=== PATIENT | male | born 1940 | race African-American/Black ===

== ENCOUNTER 2017-12-09 08:52 | Outpatient (CLI) | payer MEDICARE, SELFPAY ==
[2017-12-09 09:38] LABS: Bilirubin Negative (Negative); Blood Negative (Negative); Clarity Clear; Glucose 100 mg/dL (Negative); Ketones Negative (Negative); Leukocyte Esterase Negative (Negative); Nitrite Negative (Negative); Specific Gravity 1.025 (1.005-1.025); Urobilinogen 0.2 EU/dL (Up TO 0.2)
== END 2017-12-09 09:12 ==
PROVIDERS: PCP Family Medicine; Visit Provider Radiology Radiation Oncology
DX: R30.0 Dysuria (principal); R35.0 Frequency of micturition
CPT/HCPCS: 81003

== ENCOUNTER 2018-02-02 11:59 | Outpatient (CLI) | payer MEDICARE, SELFPAY ==
[2018-02-03 12:06] LABS: PSA, Diagnostic <0.1 ng/ml (0-6.5)
[2018-02-05 04:23] LABS: Testosterone, Total <7.0 ng/dL (240-950)
== END 2018-02-02 12:19 ==
PROVIDERS: PCP Family Medicine; Visit Provider Radiology Radiation Oncology
DX: C61 Malignant neoplasm of prostate (principal)
CPT/HCPCS: 36415; 84403; 84153

== ENCOUNTER 2018-05-06 17:00 | Outpatient (CLI) | payer OTHER, SELFPAY ==
[2018-05-06 17:29] LABS: Abs Immature Grans 0.01 k/cumm (0.0-0.09); Absolute Basophil Count 0.01 k/cumm (0.0-0.2); Absolute Eosinophil Count 0.07 k/cumm (0.0-0.7); Absolute Lymphocyte Count 0.82 k/cumm (1.2-3.4); Absolute Monocyte Count 0.32 k/cumm (0.11-0.7); Absolute Neutrophil Count 1.88 k/cumm (1.2-6.7); Basophils % 0.3; Eosinophils % 2.3; HCT 39.3 % (40.0-50.0); HGB 13.3 g/dL (13.5-17.5); Immature Grans % 0.3; Lymphocytes % 26.4; Mean Corp. HGB Concentration 33.8 g/dL (32.0-36.0); Mean Corpuscular Volume 79.9 fL (80-95); Mean Platelet Volume 10.1 fL (8.0-11.0); Monocytes % 10.3; Neutrophils % 60.4; Platelet Count 255 x1000/uL (130-400); RBC 4.92 m/cumm (4.50-6.00); RBC Distribution Width 13.7 % (11.8-14.1); White Blood Cell Count 3.11 k/cumm (4.4-10.8)
[2018-05-06 17:36] LABS: ALT 40 U/L (12-78); AST 25 U/L (15-37); Albumin 4.1 g/dL (3.4-5.0); Alkaline Phosphatase 90 U/L (46-116); BUN 25 mg/dL (7-18); Bilirubin, Total 0.2 mg/dL (0.2-1.0); CREATININE 1.34 mg/dL (0.70-1.30); Chloride 100 mmol/L (98-107); Estimated GFR 51.69 (mL/min/1.73m2); Glucose 106 mg/dL (70-100); Sodium 138 mmol/L (136-145); Total Protein 8.2 g/dL (6.4-8.2)
[2018-05-06 17:46] LABS: Calcium 9.4 mg/dL (8.5-10.1)
[2018-05-07 09:52] LABS: PSA, Diagnostic <0.1 ng/ml (0-6.5)
[2018-05-09 14:58] LABS: Testosterone, Total <7.0 ng/dL (240-950)
== END 2018-05-06 17:20 ==
PROVIDERS: Nurse Practitioner; PCP Family Medicine; Visit Provider Nurse Practitioner Family
DX: C61 Malignant neoplasm of prostate (principal)
CPT/HCPCS: 36415; 80053; 84403; 84153; 85025

== ENCOUNTER 2018-07-08 13:01 | Outpatient (CLI) | payer OTHER, SELFPAY ==
--- NOTE | 2018-07-08 13:35 | DI.RAD_ITS ---
SYMPTOMS/DIAGNOSIS: PAIN, POPPING WITH TWISTING INJURY 2 WEEKS AGO LEFT KNEE: There is slight narrowing of the medial joint compartment. Minimal periarticular hypertrophic spurring is demonstrated. There is no evidence of a fracture or dislocation. There is no evidence of a joint effusion. SUMMARY: Mild degenerative changes are identified. No fracture or dislocation is seen.
== END 2018-07-08 13:21 ==
PROVIDERS: PCP Family Medicine; Visit Provider Nurse Practitioner Family
DX: M25.562 Pain in left knee (principal); M17.12 Unilateral primary osteoarthritis, left knee
CPT/HCPCS: 73564

== ENCOUNTER 2018-07-28 14:43 | Outpatient (CLI) | payer OTHER, SELFPAY ==
[2018-07-28 15:41] LABS: Absolute Basophil Count 0.01 k/cumm (0.0-0.2); Absolute Eosinophil Count 0.17 k/cumm (0.0-0.7); Absolute Lymphocyte Count 0.78 k/cumm (1.2-3.4); Absolute Monocyte Count 0.36 k/cumm (0.11-0.7); Absolute Neutrophil Count 2.19 k/cumm (1.2-6.7); Basophils % 0.3; Eosinophils % 4.8; HCT 38.2 % (40.0-50.0); HGB 12.4 g/dL (13.5-17.5); Lymphocytes % 22.2; Mean Corp. HGB Concentration 32.5 g/dL (32.0-36.0); Mean Corpuscular Hemoglobin 26.3 pg (27.0-33.0); Mean Corpuscular Volume 80.9 fL (80-95); Mean Platelet Volume 10.2 fL (8.0-11.0); Monocytes % 10.3; Neutrophils % 62.4; Platelet Count 242 x1000/uL (130-400); RBC 4.72 m/cumm (4.50-6.00); RBC Distribution Width 13.7 % (11.8-14.1); White Blood Cell Count 3.51 k/cumm (4.4-10.8)
[2018-07-28 16:09] LABS: ALT 47 U/L (12-78); AST 27 U/L (15-37); Albumin 4.1 g/dL (3.4-5.0); Alkaline Phosphatase 90 U/L (46-116); Anion Gap 8.4 mmol/L (3-11); BUN 24 mg/dL (7-18); Bilirubin, Total 0.2 mg/dL (0.2-1.0); CO2 28.6 mmol/L (21.0-32.0); CREATININE 1.42 mg/dL (0.70-1.30); Calcium 9.2 mg/dL (8.5-10.1); Chloride 102 mmol/L (98-107); Estimated GFR 48.34 (mL/min/1.73m2); Glucose 101 mg/dL (70-100); Potassium 3.8 mmol/L (3.5-5.1); Sodium 139 mmol/L (136-145); Total Protein 7.4 g/dL (6.4-8.2)
[2018-07-29 10:12] LABS: PSA, Diagnostic <0.1 ng/ml (0-6.5)
[2018-07-31 04:38] LABS: Testosterone, Total <7.0 ng/dL (240-950)
== END 2018-07-28 15:03 ==
PROVIDERS: PCP Family Medicine; Visit Provider Nurse Practitioner
DX: C61 Malignant neoplasm of prostate (principal)
CPT/HCPCS: 36415; 80053; 84403; 84153; 85025

== ENCOUNTER 2018-08-09 06:59 | Day surgery (SDC) | payer OTHER, SELFPAY ==
--- NOTE | 2018-08-09 07:34 | W.PM.DSUDISC ---
Discharge Plan Disposition Patient Disposition: HOME Condition: Good Discharge Details Reason For Visit: SEBACEOUS CYST Attending Provider: Raman Bell Primary Care Provider: Amanda Wilkins V Home Meds and New Rx's Prescriptions: No Action aspirin 81 MG tablet,delayed release (DR/EC) 81 mg PO .3 TIMES A WEEK Qty: 1 RF: 0 chlorthalidone 50 MG tablet 25 mg PO DAILY RF: 0 sulfamethoxazole-trimethoprim [Bactrim DS] 1 EACH tablet 1 ea PO DAILY RF: 0 losartan 100 mg Tablet 50 mg PO DAILY RF: 0 finasteride 5 mg Tablet 5 mg PO DAILY RF: 0 Discharge Instructions Additional Instructions: see sheet Activity:: Activity as Tolerated Remove Dressings/Wound Care:: 24 hours Shower/Bathe:: 24 hours
[2018-08-09 07:36] VITALS: BP 149/76; PULSE 68; RESP 16; TEMP 36.2; O2SAT 98
[2018-08-09] MEDS: Lactated Ringers 1,000 ML 80 ML IV (08:02)
--- NOTE | 2018-08-09 08:48 | SOFT_PTH ---
PATIENT: Karel Armstrong LOC: [facility] U#:[id number] AGE/SX: 78/M ROOM: RE08/09/[address]: Raman Bell DO : 1940 BED: DIS: 08/09/2018 SPEC #: [id number] RECD: 08/09/18 12:37 STATUS: DI REIsa #: [id number] NELSON: 08/09/18 08:[address]: Raman Bell DEPT: Surgical Specimen RECD BY: Tiesha Adams ENTERED: 08/09/18 12:38 SP TYPE: SOFT OTHR DR: Amanda Wilkins V Tissues: 1 - SOFT TISSUE-CYST(NOT LIPOMA) Procedures: GROSS AND MICRO LEVEL 4 Comments: [id number]
[2018-08-09 09:57] VITALS: BP 138/78; PULSE 59; RESP 18; TEMP 36.5; O2SAT 99
--- NOTE | 2018-08-09 14:53 | ROE_ITS ---
DATE OF PROCEDURE: August 09, 2018 PREOPERATIVE DIAGNOSIS: Right chin mass. POSTOPERATIVE DIAGNOSIS: Right chin mass; suspicious of vascular-type mass measuring 1.5 cm; skin in cision measuring 2.2 cm; intermediate closure. PROCEDURE: Excision of right chin mass with intermediate skin closure 2.2 cm; primary lesion measuri ng 1.5 cm SURGEON: Raman Bell D.O. ANESTHESIA: MAC sedation and 18 cc's of 1% lidocaine with 1:100,000 epinephrine. COMPLICATIONS: None. CONDITION: The patient tolerated the procedure well. ESTIMATED BLOOD LOSS: 1 cc INDICATIONS FOR PROCEDURE: This is a pleasant 78-year-old male that presents with a history of enlar ging right chin mass. The decision was made forth to proceed with surgery. Risks and complications were discussed in detail. Consent was placed in the Chart. PROCEDURE: The patient was brought back to the operative suite in stable condition, placed supine on the operating table and given IV sedation, localized and prepped and draped in a sterile fashion. T arnold-out was taken to confirm proper patient and procedure. A linear-type incision parallel to the mandible was made in the right submental/chin area overlying t he deep soft tissue mass. Dissection over this with sharp approach was performed. This appeared to be a vascular-type subcutaneous mass; this was dissected and the base was cauterized with bipolar cau ramesh. There was scant blood loss of 1 cc. The total skin incision was 2.2 cm. Primary mass was 1.5 cm. Intermediate closure was performed with #4-0 Monocryl, followed by #4-0 Nylon. The patient brittany erated the procedure well. Bactroban and a Band-Aid were placed. He will follow-up as an outpatient .
== END 2018-08-09 10:14 | disposition home or self-care (01) ==
PROVIDERS: PCP Family Medicine; Visit Provider Otolaryngology Otolaryngology/Facial Plastic Surgery
PROC: 0HB1XZZ Excision of Face Skin, External Approach (ICD-10-PCS; CPT 11443; principal; 2018-08-09 08:15)
DX: D18.01 Hemangioma of skin and subcutaneous tissue (principal)
CPT/HCPCS: 11443; 12051; 88305

== ENCOUNTER 2018-08-18 10:36 | Outpatient (CLI) | payer OTHER, SELFPAY ==
[2018-08-18 15:05] LABS: Abs Immature Grans 0.01 k/cumm (0.0-0.09); Absolute Basophil Count 0.01 k/cumm (0.0-0.2); Absolute Eosinophil Count 0.06 k/cumm (0.0-0.7); Absolute Lymphocyte Count 0.85 k/cumm (1.2-3.4); Absolute Monocyte Count 0.37 k/cumm (0.11-0.7); Absolute Neutrophil Count 2.51 k/cumm (1.2-6.7); Basophils % 0.3; Eosinophils % 1.6; HCT 37.1 % (40.0-50.0); HGB 12.4 g/dL (13.5-17.5); Immature Grans % 0.3; Lymphocytes % 22.3; Mean Corp. HGB Concentration 33.4 g/dL (32.0-36.0); Mean Corpuscular Hemoglobin 26.7 pg (27.0-33.0); Mean Platelet Volume 10.1 fL (8.0-11.0); Monocytes % 9.7; Neutrophils % 65.8; Platelet Count 245 x1000/uL (130-400); RBC 4.64 m/cumm (4.50-6.00); RBC Distribution Width 13.4 % (11.8-14.1); White Blood Cell Count 3.81 k/cumm (4.4-10.8)
[2018-08-18 16:04] LABS: Iron 53 ug/dL (50-175)
[2018-08-18 16:39] LABS: Ferritin 141 ng/mL (8-388); Folate 13.3 ng/mL (8.6-20.0); Vitamin B12 265 pg/mL (193-986)
== END 2018-08-18 10:56 ==
PROVIDERS: PCP Family Medicine; Visit Provider Family Medicine
DX: D64.9 Anemia, unspecified (principal)
CPT/HCPCS: 36415; 82607; 82728; 82746; 83540; 85025

== ENCOUNTER 2018-11-22 14:50 | Outpatient (CLI) | payer OTHER, SELFPAY ==
[2018-11-22 15:21] LABS: Abs Immature Grans 0.01 k/cumm (0.0-0.09); Absolute Basophil Count 0.01 k/cumm (0.0-0.2); Absolute Eosinophil Count 0.07 k/cumm (0.0-0.7); Absolute Lymphocyte Count 0.75 k/cumm (1.2-3.4); Absolute Monocyte Count 0.38 k/cumm (0.11-0.7); Absolute Neutrophil Count 2.31 k/cumm (1.2-6.7); Basophils % 0.3; HGB 12.2 g/dL (13.5-17.5); Immature Grans % 0.3; Lymphocytes % 21.2; Mean Corpuscular Hemoglobin 26.2 pg (27.0-33.0); Mean Corpuscular Volume 79.6 fL (80-95); Mean Platelet Volume 10.7 fL (8.0-11.0); Monocytes % 10.8; Neutrophils % 65.4; Platelet Count 257 x1000/uL (130-400); RBC 4.65 m/cumm (4.50-6.00); RBC Distribution Width 14.3 % (11.8-14.1); White Blood Cell Count 3.53 k/cumm (4.4-10.8)
[2018-11-22 16:16] LABS: ALT 39 U/L (12-78); AST 20 U/L (15-37); Albumin 3.9 g/dL (3.4-5.0); Alkaline Phosphatase 100 U/L (46-116); Anion Gap 9.2 mmol/L (3-11); BUN 20 mg/dL (7-18); Bilirubin, Total 0.2 mg/dL (0.2-1.0); CO2 28.8 mmol/L (21.0-32.0); CREATININE 1.22 mg/dL (0.70-1.30); Calcium 9.2 mg/dL (8.5-10.1); Chloride 103 mmol/L (98-107); Glucose 111 mg/dL (70-100); Sodium 141 mmol/L (136-145); Total Protein 7.3 g/dL (6.4-8.2)
[2018-11-23 09:50] LABS: PSA, Diagnostic <0.1 ng/ml (0-6.5)
[2018-11-26 09:47] LABS: Testosterone, Total <7.0 ng/dL (240-950)
== END 2018-11-22 15:10 ==
PROVIDERS: PCP Family Medicine; Visit Provider Radiology Radiation Oncology
DX: C61 Malignant neoplasm of prostate (principal)
CPT/HCPCS: 36415; 80053; 84403; 84153; 85025

== ENCOUNTER 2019-08-08 03:25 | Outpatient (CLI) | payer OTHER, SELFPAY ==
[2019-08-08 12:54] LABS: Abs Immature Grans 0.02 k/cumm (0.0-0.09); Absolute Basophil Count 0.01 k/cumm (0.0-0.2); Absolute Eosinophil Count 0.08 k/cumm (0.0-0.7); Absolute Lymphocyte Count 0.92 k/cumm (1.2-3.4); Absolute Monocyte Count 0.33 k/cumm (0.11-0.7); Absolute Neutrophil Count 3.04 k/cumm (1.2-6.7); Basophils % 0.2; Eosinophils % 1.8; HCT 38.9 % (40.0-50.0); HGB 13.1 g/dL (13.5-17.5); Immature Grans % 0.5 %; Lymphocytes % 20.9; Mean Corp. HGB Concentration 33.7 g/dL (32.0-36.0); Mean Corpuscular Hemoglobin 26.5 pg (27.0-33.0); Mean Corpuscular Volume 78.6 fL (80-95); Mean Platelet Volume 10.5 fL (8.0-11.0); Monocytes % 7.5; Neutrophils % 69.1; Platelet Count 250 x1000/uL (130-400); RBC 4.95 m/cumm (4.50-6.00); RBC Distribution Width 14.2 % (11.8-14.1)
[2019-08-08 13:31] LABS: ALT 49 U/L (16-63); AST 28 U/L (15-37); Albumin 4.1 g/dL (3.4-5.0); Alkaline Phosphatase 111 U/L (46-116); Anion Gap 8.3 mmol/L (3-11); BUN 21 mg/dL (7-18); Bilirubin, Total 0.3 mg/dL (0.2-1.0); CO2 30.7 mmol/L (21.0-32.0); CREATININE 1.26 mg/dL (0.70-1.30); Calcium 9.9 mg/dL (8.5-10.1); Chloride 101 mmol/L (98-107); Estimated GFR 55.35 (mL/min/1.73m2); Glucose 120 mg/dL (74-106); Potassium 3.8 mmol/L (3.5-5.1); Sodium 140 mmol/L (136-145); Total Protein 7.7 g/dL (6.4-8.2)
[2019-08-09 11:09] LABS: PSA, Diagnostic <0.1 ng/mL (0.0-6.5)
[2019-08-10 17:27] LABS: Testosterone, Total 11 ng/dL (240-950)
== END 2019-08-08 03:45 ==
PROVIDERS: PCP Family Medicine; Visit Provider Internal Medicine Hematology & Oncology
DX: C61 Malignant neoplasm of prostate (principal)
CPT/HCPCS: 36415; 80053; 84403; 84153; 85025

== ENCOUNTER 2019-10-04 02:44 | Outpatient (CLI) | payer OTHER, SELFPAY ==
[2019-10-05 08:52] LABS: PSA, Diagnostic <0.1 ng/mL (0.0-6.5)
== END 2019-10-04 03:04 ==
PROVIDERS: PCP Family Medicine; Visit Provider Urology
DX: C61 Malignant neoplasm of prostate (principal)
CPT/HCPCS: 36415; 84153

== ENCOUNTER 2019-12-26 01:39 | Outpatient (CLI) | payer OTHER, SELFPAY ==
[2019-12-28 10:41] LABS: PSA, Ultrasensitive <0.01 ng/mL (<= 6.5)
[2019-12-29 13:40] LABS: Testosterone, Total 19 ng/dL (240-950)
== END 2019-12-26 01:59 ==
PROVIDERS: Urology; PCP Family Medicine
DX: C61 Malignant neoplasm of prostate (principal)
CPT/HCPCS: 36415; 84153; 84403

== ENCOUNTER 2020-02-14 02:15 | Outpatient (CLI) | payer OTHER, SELFPAY ==
[2020-02-15 16:06] LABS: PSA, Ultrasensitive <0.01 ng/mL (<= 6.5)
[2020-02-17 13:03] LABS: Testosterone, Total 26 ng/dL (240-950)
== END 2020-02-14 02:35 ==
PROVIDERS: PCP Family Medicine; Visit Provider Nurse Practitioner Family
DX: C61 Malignant neoplasm of prostate (principal)
CPT/HCPCS: 36415; 84153; 84403

== ENCOUNTER 2020-08-07 14:07 | Outpatient (REF) | payer OTHER, SELFPAY ==
[2020-08-07 16:18] LABS: HCT 38.7 % (40.0-50.0); HGB 12.9 g/dL (13.5-17.5); MCH 26.2 pg (27.0-33.0); MCHC 33.3 % (32.0-36.0); MCV 78.5 fL (80-95); MPV 11.5 fL (8.0-11.0); Platelet Count 258 10^3/uL (130-400); RBC 4.93 10^6/uL (4.36-5.78); RDW 13.4 % (11.8-14.1); RDW-SD 38.4 fL; WBC 4.05 10^3/uL (4.4-10.8)
[2020-08-07 16:40] LABS: ALT 40 U/L (16-63); AST 21 U/L (15-37); Albumin 4.1 g/dL (3.4-5.0); Alkaline Phosphatase 96 U/L (46-116); Anion Gap 11.5 mmol/L (3-11); BUN 24 mg/dL (7-18); Bilirubin, Total 0.3 mg/dL (0.2-1.0); CO2 27.5 mmol/L (21.0-32.0); CREATININE 1.1 mg/dL (0.70-1.30); Calcium 9.6 mg/dL (8.5-10.1); Chloride 102 mmol/L (98-107); Glucose 137 mg/dL (74-106); Sodium 141 mmol/L (136-145); Total Protein 7.6 g/dL (6.4-8.2)
[2020-08-07 16:58] LABS: Hemoglobin A1C 7.2 % (<5.7)
[2020-08-07 21:56] LABS: PSA, Diagnostic <0.1 ng/mL (0.0-6.5)
== END 2020-08-07 14:08 | disposition home or self-care (01) ==
LOC: NCHCN 14:07
PROVIDERS: PCP Family Medicine; Visit Provider Family Medicine
DX: I10 Essential (primary) hypertension (principal); D64.9 Anemia, unspecified; I35.8 Other nonrheumatic aortic valve disorders; E11.9 Type 2 diabetes mellitus without complications; C61 Malignant neoplasm of prostate
CPT/HCPCS: 80053; 84402; 84403; 85027; 83036; 84153

== ENCOUNTER 2020-08-20 14:48 | Outpatient (REF) | payer OTHER, SELFPAY ==
[2020-08-20 15:54] LABS: Bacteria Negative HPF (Negative); C & S Indicated? No; Casts Negative LPF (Negative); Crystals Negative HPF (Negative); Epithelial Cells Few HPF (Negative); Mucus Negative (Negative); WBC 0-2 HPF (0-5)
== END 2020-08-20 14:49 | disposition home or self-care (01) ==
LOC: NCHCN 14:48
PROVIDERS: PCP Family Medicine; Visit Provider Nurse Practitioner Family
DX: R31.9 Hematuria, unspecified (principal)
CPT/HCPCS: 81015

== ENCOUNTER 2020-08-24 01:57 | Outpatient (CLI) | payer OTHER, SELFPAY ==
[2020-08-25 13:20] LABS: PSA, Ultrasensitive <0.01 ng/mL (<= 6.5)
[2020-08-29 11:46] LABS: Testosterone, Total 22 ng/dL (240-950)
== END 2020-08-24 01:58 | disposition home or self-care (01) ==
LOC: LBO 01:57
PROVIDERS: PCP Family Medicine; Visit Provider Nurse Practitioner Family
DX: C61 Malignant neoplasm of prostate (principal)
CPT/HCPCS: 36415; 84153; 84403

== ENCOUNTER 2020-08-31 03:34 | Outpatient (CLI) | payer OTHER, SELFPAY ==
--- NOTE | 2020-08-31 09:26 | DI.US_ITS ---
APPROVED REPORT EXAM: Comprehensive 2D, Doppler, and color-flow Echocardiogram Patient Location: Out-Patient Bulk Station Agent: Kathy Mendieta RDCS (AE) Indications: Aortic valve sclerosis Other Information Study Quality: Adequate Conclusion Left Ventricle : The left ventricle is normal size. The left ventricular systolic function is normal. The left ventricular ejection fraction is within the normal range. There is normal left ventricular wall thickness. There is normal LV segmental wall motion. The left ventricular diastolic function is normal. LVEF is 55%. Right Ventricle : The right ventricle is normal size. The right ventricular systolic function is norm al. The RVSP is 26.2 mmHg. Atria : The left atrium size is normal. The right atrium size is normal. Aortic Valve : Aortic valve is calcified. Aortic valve is probably trileaflet. Mild aortic regurgitat ion. No hemodynamically significant valvular aortic stenosis. Great Vessels : The aortic root is normal in size. The ascending aorta is mildly dilated. Aortic arch is normal in caliber. IVC is normal in size and collapses >50% with inspiration. Wall motion Left Ventricle The left ventricle is normal size. The left ventricular systolic function is normal. The left ventric ular ejection fraction is within the normal range. There is normal left ventricular wall thickness. T here is normal LV segmental wall motion. The left ventricular diastolic function is normal. There is no ventricular septal defect visualized. LVEF is 55%. Right Ventricle The right ventricle is normal size. The right ventricular systolic function is normal. The RVSP is 26 .2 mmHg. Atria The left atrium size is normal. The right atrium size is normal. The interatrial septum is intact wit h no evidence for an atrial septal defect. Aortic Valve Aortic valve is calcified. Aortic valve is probably trileaflet. No hemodynamically significant valvul ar aortic stenosis. Mild aortic regurgitation. Mitral Valve Mild mitral annular calcification. No evidence of mitral valve stenosis. Trace mitral regurgitation. Tricuspid Valve The tricuspid valve is normal in structure. There is no tricuspid valve stenosis. Trace tricuspid reg urgitation. Pulmonic Valve The pulmonary valve is normal in structure. There is no pulmonic valvular stenosis. Trace pulmonic re gurgitation. Great Vessels The aortic root is normal in size. The ascending aorta is mildly dilated. Aortic arch is normal in ca liber. IVC is normal in size and collapses >50% with inspiration. Pericardium There is no pericardial effusion. 2D Dimensions IVSD d PLAX 0.84 cm M: 0.6-1.2 LV Vol A2C d MOD 136.2 mL LVPW d PLAX 0.85 cm M: 0.6 - 1.2 LV Vol A4C d MOD 107.2 mL LVID d PLAX 4.52 cm M: 4.2 - 5.8 LA vol/ BSA A2C s A-L 25.8 mL/m2 LVDs 3.10 cm M: 2.5 - 4.0 LA vol/ BSA A4C s A-L 15.4 mL/m2 Ao Root d 3.49 cm M: 3.1 - 3.7 LA Vol/ BSA Biplane s A-L 21.2 mL/m2 RA Area A4C 14.39 cm2 LA Area A4C s MOD 12.39 cm2 RA Vol/ BSA A4C s A-L 18.3 mL/m2 LA Area A2C s MOD 17.04 cm2 Ao Asc Diam d 3.64 cm M: 2.6 - 3.4 LV EF A4C MOD 55.2 % LV EF Teichholz 58.4 % LV EF A2C MOD 55.5 % LVEF (Izquierdo's) 52.33 % M: 52 - 72 LV EF Biplane MOD 52.3 % LV Volume 91.98 mL M: 62 - 150 SV 63.69 mL LV Volume Index 47.16 mL/m2 M: 34 - 74 SV Index 32.59 mL/m2 LV Vol Biplane MOD 121.7 mL FS 30.70 % M-Mode TAPSE 2.67 cm (M/F) >1.7 LV Diastology MV E' medial 0.080 (>0.07 m/s) E/A Ratio 0.6 LV E/e MED 5.85 (<14) MV E Vmax 0.47 (0.4-1.3 m/s) MV E' lateral 0.076 (>0.1 m/s) MV A Vmax 0.80 (0.4-1.3 m/s) LV E/e LAT 6.15 (<14) MV E/A Ratio 0.57 MV E/E' medial 5.85 MV E/E' lateral 6.15 Aortic Valve LVOT Area 3.16 cm2 AoV Area Vmax 1.37 cm2 LVOT Vmax 0.91 m/s AoV Area/ BSA (Vmax) 0.70 cm2/m2 LVOT Mean Quinten. 0.61 m/s [place] Mean Quinten. 1.29 cm2 LVOT Peak Grad 3.3 mmHg [place] Mean Quinten. Index 0.66 cm2/m2 LVOT Mean Grad 1.7 mmHg AR DT 1720 msec LVOT VTI 0.206 m AR PHT 499 msec LVOT Diam s 2.00 cm AoV Vmax 2.09 m/s Velocity Ratio 0.43 AoV Mean Quinten. 1.50 m/s AoV Peak Grad 17.5 mmHg LVOT SV 64.99 mL AoV Mean Grad 9.9 mmHg AoV VTI 0.420 m AoV Area VTI 1.55 cm2 AoV Area/ BSA (VTI) 0.79 cm/m2 Mitral Valve MV DT 354 (160-240 msec) MV PHT 103 msec MV Area PHT 2.14 cm2 MV VTI 0.218 m MV VTI Annulus 0.234 m MV Area VTI 3.23 (4.0-6.0 cm2) Pulmonary Valve PV Vmax 1.09 (0.5-1.5 m/s) RVOT Peak Gr. 1.45 mmHg PV Peak Grad 4.8 mmHg RVOT Mean Gr. 0.65 mmHg PV Mean Grad 2.3 mmHg RVOT VTI 0.130 m PV VTI 0.216 m RVOT Vmax 0.60 m/s Tricuspid Valve TR Peak Grad 23.1 mmHg TR Vmax 2.41 m/s RA Pressure 3.00 mmHg RVSP (TR) 26.2 mmHg
== END 2020-08-31 03:54 ==
PROVIDERS: PCP Family Medicine; Visit Provider Family Medicine
DX: I35.8 Other nonrheumatic aortic valve disorders (principal); I35.1 Nonrheumatic aortic (valve) insufficiency; I77.810 Thoracic aortic ectasia
CPT/HCPCS: 93306

== ENCOUNTER 2021-02-21 16:40 | Outpatient (REF) | payer OTHER, SELFPAY ==
[2021-02-21 16:59] LABS: ESR 26 mm/hr (0-20)
[2021-02-21 17:37] LABS: ALT 40 U/L (16-63); AST 22 U/L (15-37); Alkaline Phosphatase 85 U/L (46-116); Anion Gap 8.8 mmol/L (3-11); BUN 25 mg/dL (7-18); Bilirubin, Total 0.2 mg/dL (0.2-1.0); CO2 29.2 mmol/L (21.0-32.0); CREATININE 1.1 mg/dL (0.70-1.30); Calcium 9.2 mg/dL (8.5-10.1); Chloride 103 mmol/L (98-107); Ferritin 218 ng/mL (26-388); Glucose 132 mg/dL (74-106); Potassium 4.1 mmol/L (3.5-5.1); Sodium 141 mmol/L (136-145); TSH (W/Ref FT4) 1.37 uIU/mL (0.36-3.74); Total Protein 7.4 g/dL (6.4-8.2); Vitamin B12 1141 pg/mL (193-986)
[2021-02-21 18:05] LABS: C-Reactive Protein 0.26 mg/dL (0.0-0.3)
[2021-02-21 18:41] LABS: HCT 39.2 % (40.0-50.0); HGB 12.8 g/dL (13.5-17.5); MCH 26.1 pg (27.0-33.0); MCHC 32.7 % (32.0-36.0); MCV 79.8 fL (80-95); MPV 11.5 fL (8.0-11.0); Platelet Count 242 10^3/uL (130-400); RBC 4.91 10^6/uL (4.36-5.78); RDW 13.8 % (11.8-14.1); RDW-SD 39.8 fL
[2021-02-21 22:31] LABS: PSA, Diagnostic <0.1 ng/mL (0.0-6.5)
== END 2021-02-21 16:41 | disposition home or self-care (01) ==
LOC: NCHCN 16:40
PROVIDERS: PCP Family Medicine; Visit Provider Family Medicine
DX: C61 Malignant neoplasm of prostate (principal); I10 Essential (primary) hypertension; E11.9 Type 2 diabetes mellitus without complications; D64.9 Anemia, unspecified; Z00.00 Encounter for general adult medical examination without abnormal findings
CPT/HCPCS: 80053; 85027; 85652; 82607; 82728; 84153; 84443; 86140

== ENCOUNTER 2021-02-22 03:37 | Outpatient (CLI) | payer OTHER, SELFPAY ==
[2021-02-25 14:39] LABS: Testosterone, Total 11 ng/dL (240-950)
[2021-02-25 15:31] LABS: PSA, Ultrasensitive <0.01 ng/mL (<= 6.5)
== END 2021-02-22 03:38 | disposition home or self-care (01) ==
PROVIDERS: PCP Family Medicine; Visit Provider Nurse Practitioner
DX: C61 Malignant neoplasm of prostate (principal)
CPT/HCPCS: 36415; 84153; 84403

== ENCOUNTER 2021-03-12 12:46 | Outpatient (CLI) | payer MEDICARE, SELFPAY ==
[2021-03-13 10:19] LABS: PSA, Diagnostic <0.1 ng/mL (0.0-6.5)
== END 2021-03-12 12:47 | disposition home or self-care (01) ==
PROVIDERS: PCP Family Medicine; Visit Provider Urology
DX: C61 Malignant neoplasm of prostate (principal)
CPT/HCPCS: 36415; 84153

== ENCOUNTER 2021-04-10 18:55 | Outpatient (CLI) | payer MEDICARE, SELFPAY ==
--- NOTE | 2021-04-10 | DI.RAD_ITS ---
Exam(s) XR FINGER RT INDEX EXAM: XR FINGER RT INDEX CLINICAL HISTORY: RT FINGER PAIN M79.644, FALL 2 DAYS AGO, JAMMED FINGER, ? FX, TENDER TECHNIQUE: COMPARISON: No exams were available for comparison FINDINGS: Three views were obtained. There is no evidence of acute fracture or dislocation. IMPRESSION: RADIATION DOSE DELIVERED: Total DLP
== END 2021-04-10 19:15 ==
PROVIDERS: PCP Family Medicine; Visit Provider Physician Assistant Medical
DX: M79.644 Pain in right finger(s) (principal); Z91.81 History of falling
CPT/HCPCS: 73140

== ENCOUNTER 2021-07-12 14:14 | Outpatient (REF) | payer MEDICARE, SELFPAY ==
[2021-07-12 14:27] LABS: HCT 37.3 % (40.0-50.0); MCH 26.1 pg (27.0-33.0); MCHC 32.2 % (32.0-36.0); MCV 81.3 fL (80-95); MPV 11.3 fL (8.0-11.0); Platelet Count 206 10^3/uL (130-400); RBC 4.59 10^6/uL (4.36-5.78); RDW 13.7 % (11.8-14.1); RDW-SD 40.4 fL; WBC 3.44 10^3/uL (4.4-10.8)
[2021-07-12 14:41] LABS: Calculated LDL 109 mg/dL (<100); Cholesterol 171 mg/dL (<200); HDL Cholesterol 41 mg/dL (40-60); Triglyceride 109 mg/dL (<150)
== END 2021-07-12 14:15 | disposition home or self-care (01) ==
LOC: NCHCN 14:14
PROVIDERS: PCP Family Medicine; Visit Provider Family Medicine
DX: E11.9 Type 2 diabetes mellitus without complications (principal); D64.9 Anemia, unspecified
CPT/HCPCS: 80061; 85027

== ENCOUNTER → 2021-07-25 14:44 | Outpatient (BNVA) | payer MEDICARE, SELFPAY | PROVIDERS: PCP Family Medicine; Referring Provider Family Medicine; Visit Provider Physical Therapy Assistant | DX: K62.5 Hemorrhage of anus and rectum (principal); D64.9 Anemia, unspecified; Z80.0 Family history of malignant neoplasm of digestive organs | CPT/HCPCS: 99214 ==

== ENCOUNTER 2021-07-31 05:15 | Outpatient (CLI) | payer MEDICARE, SELFPAY ==
--- NOTE | 2021-07-31 14:45 | RT.EKG_ITS ---
APPROVED REPORT Exam: Resting ECG Reason for Exam: Pre op testing, Prior to Colonoscopy Patient Location: O HR:63 bpm ECG Measurements Heart Rate 63 AXIS IL 379 P 0 QRSd 95 QRS -35 QT 409 T 52 QTc 419 Conclusion Gender not entered, assumed to be male for purpose of ECG interpretation Sinus rhythm...normal P axis, V-rate 60- 99 Prolonged IL interval...IL >220, V-rate 50- 90 Inferior infarct, old...Q >35mS, II III aVF
== END 2021-07-31 05:16 | disposition home or self-care (01) ==
PROVIDERS: PCP Family Medicine; Visit Provider Physical Therapy Assistant
DX: Z01.818 Encounter for other preprocedural examination (principal); I25.2 Old myocardial infarction
CPT/HCPCS: 93005; 93010

== ENCOUNTER 2021-08-02 01:28 | Outpatient (CLI) | payer MEDICARE, SELFPAY ==
[2021-08-02 09:14] LABS: Source Nasal/Nares
[2021-08-02 15:24] LABS: COVID-19 PCR Negative (Negative)
== END 2021-08-02 01:29 | disposition home or self-care (01) ==
LOC: LBO 01:28
PROVIDERS: PCP Family Medicine; Visit Provider Surgery
DX: Z20.822 Contact with and (suspected) exposure to COVID-19 (principal); Z01.818 Encounter for other preprocedural examination
CPT/HCPCS: 87635; U0005

== ENCOUNTER 2021-08-05 08:59 | Day surgery (SDC) | payer MEDICARE, SELFPAY ==
--- NOTE | 2021-08-05 06:11 | W.ANESPRE ---
General Info Date of Service Date Performed: 08/05/21 Height: 5 ft 5 in Weight: 98.656 kg Body Mass Index (BMI): 36.1 Surgical Procedure: Operation Date: 08/05/21 10:35 Proposed Procedure Side Surgeon p Colonoscopy/Gastroscopy Tsering Topete MD Meds Allergies and Home Medications Allergies Allergy/AdvReac Type Severity Reaction Status Date / Time ciprofloxacin [From Cipro] Allergy Verified 08/05/21 08:39 ciprofloxacin HCl Allergy Verified 08/05/21 08:39 [From Cipro] lisinopril AdvReac Mild Verified 08/05/21 08:39 aspirin AdvReac ??? Verified 08/05/21 08:39 IRREGULAR HEART RHYTHM atenolol AdvReac FATIGUE/HAs Verified 08/05/21 08:39 nitrofurantoin AdvReac STOMACH Verified 08/05/21 08:39 UPSET Sulfa (Sulfonamide AdvReac HAs, Verified 08/05/21 08:39 Antibiotics) BLURRY VISION Home Medication Medication Instructions Recorded chlorthalidone 50 mg tablet 25 mg PO DAILY 10/03/15 finasteride 5 mg tablet 5 mg PO DAILY 08/05/18 cyanocobalamin (vitamin B-12) 1,000 mcg PO DAILY 04/29/21 1,000 mcg capsule ferrous gluconate 324 mg (37.5 mg 324 mg PO DAILY 04/29/21 iron) tablet tamsulosin 0.4 mg capsule 0.8 mg PO QHS cap 04/29/21 losartan 25 mg tablet 25 mg PO DAILY 07/18/21 simvastatin 10 mg tablet 10 mg PO DAILY 07/18/21 bisacodyl 5 mg tablet,delayed 5 mg PO ONCE #4 tab 07/25/21 release (Dulcolax (bisacodyl)) polyethylene glycol 3350 17 17 g PO ONCE #238 g 07/25/21 gram/dose oral powder Current Visit Medications: Current Medications Generic Name Dose Route Start Last Admin Trade Name Freq PRN Reason Stop Dose Admin Ringer's Solution 1,000 mls @ 80 mls/hr 08/05/21 06:00 IV 09/01/21 23:59 INFUSION HECTOR IV Miscellaneous Supplies 1 each 08/05/21 06:00 Iv Access IV 09/01/21 23:59 DIRECTED HECTOR Sodium Chloride 0 ml 08/05/21 06:00 Normal Saline Flush 10 Ml Syr IV 09/01/21 23:59 PRN PRN Sodium Chloride 0 ml 08/05/21 06:00 Normal Saline 10 Ml Vial IJ 09/01/21 23:59 DIRECTED PRN Sterile Water 0 ml 08/05/21 06:00 Water,Injection,Sterile 10 Ml Vial IJ 09/01/21 23:59 DIRECTED PRN PFSH Active Problems Active Problems: Problem Status Onset Code Fatigue R53.83 Blood in stool K92.1 Medical History Medical History Anemia Aortic valve sclerosis Bitten or stung by nonvenomous insect and other nonvenomous arthropods, initial encounter Chronic kidney disease Constipation Diabetes mellitus, type II Diastasis recti Diverticulosis Elbow pain, left Epididymal cyst GERD (gastroesophageal reflux disease) Heart murmur Pt. states he has had this murmur for 2-3 years Hematuria Hx of laceration of skin Hypertension Lower urinary tract symptoms Night sweats Pedal edema Prostate cancer Raynaud's phenomenon Scrotal mass Situational disturbance Tear of lateral meniscus of right knee 2014 Surgical History Surgical History History of prostate surgery prostate median lobe resection/vaporization + TRUS biopsy 12/03/01 - Dr. Cardona Prostate photoselective vaporization + biopsy 04/07/08 - Dr. Martínez History of repair of ACL 2014 History of right knee joint replacement [address] [place] [address] History of total knee arthroplasty Hx of cataract surgery 2011 Hx of colonoscopy 04/26/01 Hx of eye surgery 2014 Hx of prostate biopsy 10/26/01,11/05,04/14 Tobacco Smoking/Tobacco Use Status: Never Substance Use Substance use: Never Substance use type: does not use Vital Signs and Lab Results Vital Signs Most Recent Vital Signs in EMR: Temp Pulse Resp BP Pulse Ox 36.5 C 76 18 152/74 H 98 08/05/21 09:00 08/05/21 09:00 08/05/21 09:00 08/05/21 09:00 08/05/21 09:00 Lab Results Blood Type / Crossmatch: No Data to Display Complete Blood Count: White Blood Count 3.44 10^3/uL (4.4-10.8) L 07/12/21 09:10 07/12/21 Red Blood Count 4.59 10^6/uL (4.36-5.78) 07/12/21 09:10 07/12/21 Hemoglobin 12.0 g/dL (13.5-17.5) L 07/12/21 09:10 07/12/21 Hematocrit 37.3 % (40.0-50.0) L 07/12/21 09:10 07/12/21 Platelet Count 206 10^3/uL (130-400) 07/12/21 09:10 07/12/21 Complete Metabolic Panel: No Data to Display Liver Function Panel: No Data to Display Coagulation Panel: No Data to Display Cardiac Panel: No Data to Display Arterial Blood Gas: No Data to Display Venous Blood Gas: No Data to Display Pancreas Panel: No Data to Display Thyroid Panel: No Data to Display Infectious Disease: Coronavirus (COVID-19)(PCR) Negative (Negative) 08/02/21 08:59 08/02/21 Coronavirus 2019 Source Nasal/Nares 08/02/21 08:59 08/02/21 Blood Cultures: No Data to Display Toxicology Panel: No Data to Display Imaging and Studies Imaging and Studies Study information below may be from another EMR and interpreted by another provider. Please see original notes in EMR for more complete details. Echocardiogram Summary: 08/2020: LVEF 55%, RVSP 26 mmhg, mild AR. Anesthesia Assessment and Plan Anesthesia History Personal History: No History of Anesthesia Complications Family History: No Family History of Anesthesia Complications Exercise Tolerance Exercise Tolerance: Metabolic Equivalents>4 Cardiac & Pulmonary Exam Cardiac Exam: Normal S1/S2 Heart Sounds Pulmonary Exam: Clear Bilateral Breath Sounds Implantable Cardiac Device Does patient have a Pacemaker or an ICD?: No Airway Exam Known Difficult Airway: No Mallampati Class: 3 Mouth Opening: Normal (> 3cm) Thyromental Distance: Greater than 3 cm Neck Range of Motion: Full ROM Neck Circumference: Thick Teeth Condition: Removable Dentures/Plates Upper ASA Classification ASA Score: ASA 2 Emergency Case?: No NPO Status NPO Status: NPO Clears >2 hours, Solids >8 hours Anesthesia Plan Resuscitation Status: Full Code Anesthesia Technique: General Anesthesia Airway Planned: Natural Airway Monitors Used: Standard Monitors Preoperative Comments:: 81 yo male for colonoscopy. Sig PMHx: DM2 (A1c 7.8%), GERD, prostate CA, HTN (chlorthalidone, losartan), never smoker. ECHO 2020: LVEF 55%, RVSP 26 mmhg, mild AR. 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
--- NOTE | 2021-08-05 06:50 | COLE_ITS ---
Colonoscopy Report Date of procedure: 08/05/21 Pre-op diagnosis general: Anemia, Family hx of colon Cancer Post-op diagnosis procedure note: other (Mild gastritis and esophagitis, Hiatal hernia, internal hemorrhoids and mild diverticulosis) Procedure: 1. EGD with biopsies 2. Colonoscopy Surgeon: Tsering Topete Anesthesia Type: General:No Airway Estimated blood loss (mL): 3 Pathology: other (Gastric bx, GE junction bx) Complications: None Disposition: same day Indications: 81 y/o male with history of aortic valve sclerosis, DM Type 2, GERD, prostate cancer and HTN presents for colonoscopy screening pre-op. His last screening was in 2001, which was unremarkable. He has a family history of colon cancer in his brother dx at the age of 64.? Patient denies any persistent bowel habit changes.? Patient states that he has had chronic intermittent bright red blood following bowel movements, however last month he noticed this on 2 separate occasions and felt this was abnormal and raised some concerns.? Patient denies any symptoms of diarrhea, constipation, black tarry stools or abdominal pain.? Also of note patient reports having really bad reflux symptoms, he attempted to cut back on coffee however this did not improve any of his symptoms.? He says his symptoms are mostly at night and sometimes during the day.? He has been treating this with [id number] Tums. Prep: Miralax/Dulcolax Procedure Start Time: 10:45 Procedure End Time: 11:16 Retraction Time: 9 minutes Findings: mild inflammation of the stomach and esophagus Small Hiatal hernia internal hemorrhoids and mild diverticulosis Procedure Description: After informed consent was obtained the patient was take to the procedure room and placed in a supine position. Monitors were applied and a time out was done. The patients name, date of , procedure type, allergies to medications and metal in their body was reviewed. A bite block was placed and the patient was sedated. Once sedated and comfortable the gastroscope was advanced through the oropharynx which was grossly normal into the esophagus. The proximal and mid- esophagus were normal. In the distal esophagus there was mild inflammation noted. The scope was advanced into the stomach and through the pylorus into the 3rd portion of the duodenum. The duodenum was noted to be normal. The scope was retracted back into the stomach. There was mild inflammation noted in the antrum. Biopsies were done to rule out H. pylori. There were no ulcers. The scope was retro-flexed. The cardia and fundus were noted to be normal. There was a small hiatal hernia noted. The scope was retracted back into the esophagus and biopsies were done of the GE junction to rule out Baker's. The Z line was regular. The GE junction was at 36 cm. While the patient was still sedated they were placed in a left decubitous position. A rectal exam was done. External exam was normal. Internal exam revealed a normal sphincter tone and no palpable masses. The prostate felt smooth. The scope was then introduced and retro-flexed. Grade 1 internal hemorrhoids were identified. No masses or polyps were identified on retroflexion. The scope was then advanced to the cecum without difficulty. The ileocecal valve and appendiceal orifice were identified. The prep was good. The scope was then slowly retracted over 9 minutes back into the rectum. There were no polyps. There was mild sigmoid diverticulosis noted. The scope was removed and the patient was woken up and taken back to Same day surgery in stable condition. The patient tolerated the procedure well and there were no immediate complications. Follow up: as needed. Start Pepcid for his heart burn and mild inflammation
--- NOTE | 2021-08-05 06:52 | PDOC.DSDIS_ITS ---
Discharge Plan Disposition Patient Disposition: HOME Condition: Good Discharge Details Reason For Visit: [place]/EGD Attending Provider: Tsering Topete Primary Care Provider: Amanda Wilkins V Home Meds and New Rx's Prescriptions: New famotidine [Pepcid] 40 mg tablet 40 mg PO DAILY Qty: 30 3RF Continued cyanocobalamin (vitamin B-12) 1,000 mcg capsule 1,000 mcg PO DAILY 0RF tamsulosin 0.4 mg capsule 0.8 mg PO QHS 0RF ferrous gluconate 324 mg (37.5 mg iron) tablet 324 mg PO DAILY 0RF simvastatin 10 mg tablet 10 mg PO DAILY 0RF losartan 25 mg tablet 25 mg PO DAILY 0RF chlorthalidone 50 MG tablet 25 mg PO DAILY 0RF finasteride 5 mg Tablet 5 mg PO DAILY 0RF Discontinued bisacodyl [Dulcolax (bisacodyl)] 5 mg tablet,delayed release (DR/EC) 5 mg PO ONCE Qty: 4 0RF Rx Instructions: Take according to provider's instructions for colonoscopy prep. polyethylene glycol 3350 17 gram/dose powder 17 g PO ONCE Qty: 238 0RF Rx Instructions: To be taken as directed by prescriber's office for colonoscopy prep. Discharge Instructions Instructions: Gastritis (DC), Hemorrhoids (ED), Diverticulosis (DC), GERD (Gastroesophageal Reflux Disease) (DC) Additional Instructions: Findings: inflammation of the stomach, esophagus internal hemorrhoids Diverticulosis Follow up: as needed Please call if you develop: fevers >101.5 Nausea or Vomiting Abdominal pain that is not transient Rectal bleeding that is more then a tbsp A hard abdomen and inability to pass gas DAY SURGERY UNIT POST ENDOSCOPY INSTRUCTIONS Instructions for everyone who is given Anesthesia: For your safety, please do the following for the next 24 Hours: a. Do not drive or operate dangerous equipment b. Do not drink alcohol beverages or use any recreational drugs for the first 24 hours or while taking pain medications. The medications in your body may have a reaction that can be dangerous. c. Do not make any important decisions or sign any important papers 1. Generally there are no restrictions on your activity after a day or so has gone by, but you may feel a bit fatigued for a few days. 2. After you arrive home you may have a light meal and return to a normal diet as you can tolerate it without feeling sick to your stomach. 3. After surgery, you may feel pain or discomfort. This should be only transient, but if it persists please contact your doctor. 4. If there are any questions regarding the findings of your procedure, please feel free to contact your doctor. 6. If you are unable to contact your doctor with a problem, contact the hospital at [phone]. 7. Continue all your regular medications unless directed otherwise. I understand the above instructions and have no questions. Signature of Patient or Responsible Adult Escort Date/Time Name of Responsible Adult Escort Signature of Nurse Date/Time Activity:: Activity as Tolerated Diet:: As Tolerated Discharge Orders Discharge Orders: Discharge Order (Routine); Ordered 08/05/21 Ordered By: Tsering Topete
[2021-08-05 09:00] VITALS: BP 152/74; PULSE 76; RESP 18; TEMP 36.5; O2SAT 98
[2021-08-05] MEDS: Lactated Ringers 1,000 ML 80 ML IV (09:35)
[2021-08-05 09:41] VITALS: BMI 36.1
--- NOTE | 2021-08-05 10:49 | STOM_PTH ---
PATIENT: Karel Armstrong LOC: [facility] U#:[id number] AGE/SX: 81/M ROOM: RE08/05/[address]: Tsering Topete MD : 1940 BED: DIS: 08/05/2021 SPEC #: [id number] RECD: 08/05/21 12:48 STATUS: DI REIsa #: [id number] NELSON: 08/05/21 10:[address]: Tsering Topete DEPT: Surgical Specimen RECD BY: Tiesha Adams ENTERED: 08/05/21 12:49 SP TYPE: STOMACH OTHR DR: Amanda Wilkins V Tissues: 1 - STOMACH BIOPSY 2 - ESOPHAGUS BIOPSY Procedures: GROSS AND MICRO LEVEL 4 SPECIAL STAIN 1 Comments: [id number]
[2021-08-05 11:25] VITALS: BP 114/75; PULSE 79; RESP 18; TEMP 36.2; O2SAT 98
--- NOTE | 2021-08-05 11:40 | W.ANESPOSTOP ---
Postoperative Evaluation Date, Time and Location Date Performed: 08/05/21 Time Performed: 11:40 Patient Location: Day Surgery Unit Vital Signs Most Recent Imported Vital Signs: Most Recent Vital Signs Temp Pulse Resp BP Pulse Ox 36.2 C L 79 18 114/75 98 08/05/21 11:25 08/05/21 11:25 08/05/21 11:25 08/05/21 11:25 08/05/21 11:25 Pain Score Most Recent Pain Score: Most Recent Pain Score Pain Level 0 08/05/21 11:25 Assessment Mental Status: Arousable with meaningful communication Airway and Respiratory Function: Patent airway with normal (patient baseline) respiratory exam Cardiovascular Function: Hemodynamically Stable Hydration Status: Adequately Hydrated Nausea & Vomiting: No Nausea or Vomiting Pain: Pt. Denies Any Pain Peripheral Nerve Block: Patient did not receive a nerve block
[2021-08-05 11:59] VITALS: BP 142/82; PULSE 70; RESP 18; TEMP 36.4; O2SAT 100
== END 2021-08-05 12:27 | disposition home or self-care (01) ==
LOC: SUR 09:00
PROVIDERS: PCP Family Medicine; Visit Provider Surgery
PROC: (CPT 43239; principal; 2021-08-05 10:30)
DX: D64.9 Anemia, unspecified (principal); K62.5 Hemorrhage of anus and rectum; K64.0 First degree hemorrhoids; K57.30 Diverticulosis of large intestine without perforation or abscess without bleeding; K20.90 Esophagitis, unspecified without bleeding; K44.9 Diaphragmatic hernia without obstruction or gangrene; Z80.0 Family history of malignant neoplasm of digestive organs; K31.89 Other diseases of stomach and duodenum; K22.89 Other specified disease of esophagus
CPT/HCPCS: 43239; 45378; 88305; 88312

== ENCOUNTER 2021-09-09 18:13 | Outpatient (CLI) | payer MEDICARE, SELFPAY ==
[2021-09-09 11:37] LABS: Abs Immature Grans 0.02 10^3/uL (0.0-0.06); Absolute Basophil Count 0.01 10^3/uL (0.0-0.2); Absolute Eosinophil Count 0.09 10^3/uL (0.0-0.7); Absolute Lymphocyte Count 0.89 10^3/uL (1.2-3.4); Absolute Monocyte Count 0.38 10^3/uL (0.1-0.8); Absolute Neutrophil Count 2.51 10^3/uL (1.2-6.7); Basophils % 0.3; Eosinophils % 2.3; HCT 39.7 % (40.0-50.0); HGB 13.3 g/dL (13.5-17.5); Immature Grans % 0.5; Lymphocytes % 22.8; MCH 26.4 pg (27.0-33.0); MCHC 33.5 % (32.0-36.0); MCV 79 fL (80-95); MPV 10.6 fL (8.0-11.0); Monocytes % 9.7; Neutrophils % 64.4; Platelet Count 220 10^3/uL (130-400); RBC 5.03 10^6/uL (4.36-5.78); RDW 13.3 % (11.8-14.1); RDW-SD 37.9 fL
[2021-09-09 11:53] LABS: ALT 39 U/L (16-63); AST 24 U/L (15-37); Albumin 4.1 g/dL (3.4-5.0); Alkaline Phosphatase 101 U/L (46-116); Anion Gap 7.9 mmol/L (3-11); BUN 26 mg/dL (7-18); Bilirubin, Total 0.3 mg/dL (0.2-1.0); CO2 30.1 mmol/L (21.0-32.0); CREATININE 1.2 mg/dL (0.70-1.30); Calcium 9.4 mg/dL (8.5-10.1); Chloride 104 mmol/L (98-107); Estimated GFR 58.26 (mL/min/1.73m2); Glucose 141 mg/dL (74-106); Sodium 142 mmol/L (136-145); Total Protein 7.9 g/dL (6.4-8.2)
[2021-09-10 18:05] LABS: PSA, Ultrasensitive <0.01 ng/mL (<= 7.2)
[2021-09-13 16:03] LABS: Testosterone, Total 17 ng/dL (240-950)
== END 2021-09-09 18:14 | disposition home or self-care (01) ==
LOC: LBO 18:15
PROVIDERS: PCP Family Medicine; Visit Provider Nurse Practitioner Family
DX: C61 Malignant neoplasm of prostate (principal)
CPT/HCPCS: 36415; 80053; 84153; 84403; 85025

== ENCOUNTER 2021-11-25 17:08 | Outpatient (REF) | payer MEDICARE, SELFPAY ==
[2021-11-25 22:11] LABS: Albumin ug/mg Crea 98 (<30); Albumin, Ur 9.4 mg/dL (See Note); Creatinine, Ur 96.2 mg/dL (See Note)
== END 2021-11-25 17:09 | disposition home or self-care (01) ==
LOC: NCHCN 17:08
PROVIDERS: PCP Family Medicine; Visit Provider Nurse Practitioner Family
DX: E11.9 Type 2 diabetes mellitus without complications (principal)
CPT/HCPCS: 82043; 82570

== ENCOUNTER 2022-01-20 08:11 | Outpatient (CLI) | payer MEDICARE, SELFPAY ==
--- NOTE | 2022-01-20 08:00 | RT.EKG_ITS ---
APPROVED REPORT Exam: Resting ECG Reason for Exam: palpitations Patient Location: O HR:78 bpm ECG Measurements Heart Rate 78 AXIS NH 300 P -35 QRSd 92 QRS -36 QT 386 T 32 QTc 440 Conclusion Sinus rhythm...normal P axis, V-rate 50- 99 Prolonged NH interval...NH >220, V-rate 50- 90 Abnormal R-wave progression, early transition...QRS area>0 in V2
== END 2022-01-20 08:12 | disposition home or self-care (01) ==
LOC: DI.CARD 08:12
PROVIDERS: PCP Family Medicine; Visit Provider Internal Medicine Cardiovascular Disease
DX: R00.2 Palpitations (principal); R94.31 Abnormal electrocardiogram [ECG] [EKG]
CPT/HCPCS: 93010

== ENCOUNTER → 2022-01-20 12:40 | Outpatient (BNVA) | payer MEDICARE, SELFPAY | PROVIDERS: PCP Family Medicine; Referring Provider Family Medicine; Visit Provider Internal Medicine Cardiovascular Disease | DX: R00.2 Palpitations (principal); I35.8 Other nonrheumatic aortic valve disorders; I10 Essential (primary) hypertension | CPT/HCPCS: 93005; 99203; 99214 ==

== ENCOUNTER 2022-02-26 15:18 | Outpatient (REF) | payer MEDICARE, SELFPAY ==
[2022-02-26 14:29] LABS: Abs Immature Grans 0.02 10^3/uL (0.0-0.06); Absolute Basophil Count 0.01 10^3/uL (0.0-0.2); Absolute Eosinophil Count 0.07 10^3/uL (0.0-0.7); Absolute Lymphocyte Count 1.05 10^3/uL (1.2-3.4); Absolute Monocyte Count 0.44 10^3/uL (0.1-0.8); Absolute Neutrophil Count 2.76 10^3/uL (1.2-6.7); Basophils % 0.2; Eosinophils % 1.6; HCT 40.6 % (40.0-50.0); HGB 13.5 g/dL (13.5-17.5); Immature Grans % 0.5; Lymphocytes % 24.1; MCH 25.8 pg (27.0-33.0); MCHC 33.3 % (32.0-36.0); MCV 78 fL (80-95); MPV 11.4 fL (8.0-11.0); Monocytes % 10.1; Neutrophils % 63.5; Platelet Count 240 10^3/uL (130-400); RBC 5.24 10^6/uL (4.36-5.78); RDW 13.5 % (11.8-14.1); RDW-SD 37.9 fL; WBC 4.35 10^3/uL (4.4-10.8)
[2022-02-26 14:41] LABS: Iron 91 ug/dL (65-175); Total Iron Binding Capacity 382 ug/dL (250-450); Transferrin Sat 24 % (20-55)
[2022-02-26 15:05] LABS: ALT 50 U/L (16-63); AST 27 U/L (15-37); Alkaline Phosphatase 92 U/L (46-116); Anion Gap 5.5 mmol/L (3-11); BUN 19 mg/dL (7-18); Bilirubin, Total 0.4 mg/dL (0.2-1.0); CO2 31.5 mmol/L (21.0-32.0); CREATININE 1.2 mg/dL (0.70-1.30); Calcium 9.5 mg/dL (8.5-10.1); Chloride 96 mmol/L (98-107); Estimated GFR 61.13 (mL/min/1.73m2); Ferritin 249 ng/mL (26-388); Glucose 152 mg/dL (74-106); Potassium 3.5 mmol/L (3.5-5.1); Sodium 133 mmol/L (136-145); Vitamin B12 935 pg/mL (193-986)
[2022-02-26 16:36] LABS: Vitamin D 25 Total 40.4 ng/mL (30-100)
== END 2022-02-26 15:19 | disposition home or self-care (01) ==
LOC: NCHCN 15:18
PROVIDERS: PCP Family Medicine; Visit Provider Nurse Practitioner Family
DX: D64.9 Anemia, unspecified (principal); E11.9 Type 2 diabetes mellitus without complications; K21.9 Gastro-esophageal reflux disease without esophagitis; E78.5 Hyperlipidemia, unspecified; I10 Essential (primary) hypertension; N18.31 Chronic kidney disease, stage 3a; R68.89 Other general symptoms and signs
CPT/HCPCS: 80053; 82306; 82607; 82728; 83540; 83550; 85025

== ENCOUNTER 2022-03-27 02:22 | Outpatient (CLI) | payer MEDICARE, SELFPAY ==
[2022-03-29 13:04] LABS: PSA, Ultrasensitive <0.01 ng/mL (<= 7.2)
[2022-03-31 12:51] LABS: Testosterone, Total 11 ng/dL (240-950)
== END 2022-03-27 02:23 | disposition home or self-care (01) ==
LOC: LBO 02:23
PROVIDERS: PCP Family Medicine; Visit Provider Nurse Practitioner Family
DX: C61 Malignant neoplasm of prostate (principal)
CPT/HCPCS: 36415; 84153; 84403

== ENCOUNTER 2022-07-17 16:18 | Outpatient (REF) | payer MEDICARE, SELFPAY ==
[2022-07-17 15:58] LABS: Absolute Basophil Count 0.01 10^3/uL (0.0-0.2); Absolute Eosinophil Count 0.09 10^3/uL (0.0-0.7); Absolute Lymphocyte Count 0.98 10^3/uL (1.2-3.4); Absolute Monocyte Count 0.36 10^3/uL (0.1-0.8); Absolute Neutrophil Count 2.26 10^3/uL (1.2-6.7); Basophils % 0.3; Eosinophils % 2.4; HCT 44.3 % (40.0-50.0); HGB 14.4 g/dL (13.5-17.5); Lymphocytes % 26.5; MCH 25.6 pg (27.0-33.0); MCHC 32.5 % (32.0-36.0); MCV 79 fL (80-95); Monocytes % 9.7; Neutrophils % 61.1; Platelet Count 224 10^3/uL (130-400); RBC 5.62 10^6/uL (4.36-5.78); RDW 13.5 % (11.8-14.1); RDW-SD 38.5 fL
[2022-07-17 16:01] LABS: Iron 83 ug/dL (65-175); Total Iron Binding Capacity 370 ug/dL (250-450); Transferrin Sat 22 % (20-55)
[2022-07-17 16:24] LABS: Ferritin 276 ng/mL (26-388); Vitamin B12 1029 pg/mL (193-986)
[2022-07-17 16:51] LABS: Hemoglobin A1C 8.5 % (<5.7)
[2022-07-17 17:26] LABS: ALT 41 U/L (16-63); AST 17 U/L (15-37); Albumin 4.2 g/dL (3.4-5.0); Alkaline Phosphatase 91 U/L (46-116); Anion Gap 10.8 mmol/L (3-11); BUN 18 mg/dL (7-18); Bilirubin, Total 0.3 mg/dL (0.2-1.0); CO2 28.2 mmol/L (21.0-32.0); CREATININE 1.2 mg/dL (0.70-1.30); Chloride 102 mmol/L (98-107); Estimated GFR 60.75 (mL/min/1.73m2); Glucose 225 mg/dL (74-106); Potassium 3.9 mmol/L (3.5-5.1); Sodium 141 mmol/L (136-145); Total Protein 7.9 g/dL (6.4-8.2)
== END 2022-07-17 16:19 | disposition home or self-care (01) ==
LOC: NCHCN 16:18
PROVIDERS: PCP Family Medicine; Visit Provider Nurse Practitioner Family
DX: E11.9 Type 2 diabetes mellitus without complications (principal); I10 Essential (primary) hypertension; D64.9 Anemia, unspecified; E53.8 Deficiency of other specified B group vitamins
CPT/HCPCS: 80053; 82607; 82728; 83036; 83540; 83550; 85025

== ENCOUNTER 2022-07-31 13:11 | Outpatient (CLI) | payer MEDICARE, SELFPAY ==
[2022-07-31 22:30] LABS: PSA, Diagnostic <0.1 ng/mL (<=6.5)
== END 2022-07-31 13:12 | disposition home or self-care (01) ==
LOC: LBO 13:12
PROVIDERS: PCP Family Medicine; Visit Provider Urology
DX: C61 Malignant neoplasm of prostate (principal)
CPT/HCPCS: 36415; 84153

== ENCOUNTER 2022-09-22 12:41 | Outpatient (CLI) | payer MEDICARE, SELFPAY ==
[2022-09-22 11:53] LABS: Abs Immature Grans 0.01 10^3/uL (0.0-0.06); Absolute Basophil Count 0.01 10^3/uL (0.0-0.2); Absolute Eosinophil Count 0.09 10^3/uL (0.0-0.7); Absolute Lymphocyte Count 1.34 10^3/uL (1.2-3.4); Absolute Monocyte Count 0.34 10^3/uL (0.1-0.8); Absolute Neutrophil Count 2.43 10^3/uL (1.2-6.7); Basophils % 0.2; Eosinophils % 2.1; HCT 40.2 % (40.0-50.0); HGB 13.5 g/dL (13.5-17.5); Immature Grans % 0.2; Lymphocytes % 31.8; MCH 26.2 pg (27.0-33.0); MCHC 33.6 % (32.0-36.0); MCV 78 fL (80-95); MPV 10.5 fL (8.0-11.0); Monocytes % 8.1; Neutrophils % 57.6; Platelet Count 208 10^3/uL (130-400); RBC 5.16 10^6/uL (4.36-5.78); RDW 13.5 % (11.8-14.1); RDW-SD 38.5 fL; WBC 4.22 10^3/uL (4.4-10.8)
--- OUTSIDE RECORDS SUMMARY | 2022-09-22 12:44 | XMS_ITS | Continuity of Care Document ---
Author Name Unknown Organization [facility] Ambulatory Clinics Address [address] [place] [address] Care Team Providers Care Nursing Informatics Clinical Analyst Name Role Phone Coral Guardado Primary Care Physician Encounter [facility] NBR [id number] Date(s): 08/04/22 - 08/04/22 [facility] Ambulatory Clinics [address] [place] [address]- Encounter Diagnosis Benign localized prostatic hyperplasia with lower urinary tract symptoms (LUTS) (Discharge Diagnosis) - 08/04/22 Benign prostatic hyperplasia with outflow obstruction(Discharge Diagnosis) - 08/04/22 Malignant tumor of prostate(Discharge Diagnosis) - 08/04/22 Erectile dysfunction(Discharge Diagnosis) - 08/04/22 Discharge Disposition: Home or Self Care Attending Physician: Essence Liang MD Allergies, Adverse Reactions, Alerts No Known Medication Allergies Assessment and Plan Future Appointments Future Scheduled Tests Laboratory* PSA Diagnostic 08/04/22 * PSA Diagnostic 02/04/23 Radiology* US Kidney Bladder 04/16/22 Functional Status 08/04/22 Living Environment Home Environment No qualifying data available Other exposure to Infectious Disease Non e Medications chlorthalidone 25 mg oral tablet 25 mg = 1 tab, Oral, Daily, # 90 tab, 0 Refill(s) Start Date: 03/18/22 Status: Ordered famotidine 40 mg oral tablet 0 Refill(s) Start Date: 03/18/22 Status: Ordered ferrous gluconate 324 mg (38 mg elemental iron) oral tablet 0 Refill(s) Start Date: 03/18/22 Status: Ordered finasteride 5 mg oral tablet 0 Refill(s) Start Date: 03/18/22 Status: Ordered losartan 25 mg oral tablet 25 mg = 1 tab, Oral, Daily, # 90 tab, 0 Refill(s) Start Date: 03/18/22 Status: Ordered magnesium oxide 400 mg (241.3 mg elemental magnesium) oral tablet 0 Refill(s) Start Date: 08/04/22 Status: Ordered Rybelsus 3 mg oral tablet 3 mg = 1 tab, Oral, Daily, take at least 30 minutes before first food, beverage, or other oral meds, # 30 tab, 0 Refill(s) Start Date: 08/04/22 Status: Ordered simvastatin 10 mg oral tablet 0 Refill(s) Start Date: 03/18/22 Status: Ordered tamsulosin 0.4 mg oral capsule 0.8 mg = 2 cap, Oral, Daily, cap, 0 Refill(s) Start Date: 03/18/22 Stop Date: 06/16/22 Status: Ordered Vitamin B12 0 Refill(s) Start Date: 03/18/22 Status: Ordered Problem List Condition Confirmation Course Effective Dates Status Health St atus Informant Benign prostatic hyperplasia with outflow obstruction Confirmed Active Erectile dysfunction Confirmed Active Impacted cerumen Confirmed Active Malignant tumor of prostate Confirmed Active Procedures Procedure Date Related Diagnosis Body Site Status Transurethral biopsy of prostate 12/02/01 Completed Biopsy of prostate 1 10/25/01 Comp leted Colonoscopy Completed , 04/14. Results Laboratory List Name Date .Urinalysis POCT 08/04/22 Most recent to oldest [Reference Range]: 1 Method of Collect POC Clean Catch *NA* (08/04/22 9:39 AM) Specific [place], Ur POC 1.020 *NA* (08/04/22 9:39 AM) Specimen Color POC [Yellow] Yellow (08/04/22 9:39 AM) Glucose, Urine POC Negative mg/dL *NA* (08/04/22 9:39 AM) Bilirubin, Urine POC [Negative] Negative (08/04/22 9:39 AM) Ketones, Urine POC [Negative mg/dL] Nega tive mg/dL (08/04/22 9:39 AM) Blood, Urine POC [Negative] Trace *ABN* (08/04/22 9:39 AM) pH, Urine POC 7.0 *NA* (08/04/22 9:39 AM) Protein, Urine POC [Negative mg/dL] 30 m g/dL *ABN* (08/04/22 9:39 AM) Urobilinogen, Urine POC [0.2] 0.2 (08/04/22 9:39 AM) Nitrite, Urine POC [Negative] Negative (08/04/22 9:39 AM) Leuk Esterase, Urine POC [Negative] Nega tive (08/04/22 9:39 AM) Clarity, Urine POC [Clear] Clear (08/04/22 9:39 AM) Vital Signs Most recent to oldest [Reference Range]: 1 Temperature Temporal Artery [36-38 Deg C ] 35.6 Deg C *LOW* (08/04/22 9:13 AM) Apical Heart Rate [60-100 bpm] 76 bpm (08/04/22 9:13 AM) Respiratory Rate [12-24 br/min] 12 br/mi n (08/04/22 9:13 AM) Blood Pressure [90-140/60-90 mmHg] 150/7 6mmHg *HI* (08/04/22 9:13 AM) Weight 96.16 kg (08/04/22 9:13 AM) Weight Measured (lbs) 211.996 lb (08/04/22 9:13 AM) [place] Body Weight Calculated 61.5 kg (08/04/22 9:13 AM) Height 165.10 cm (08/04/22 9:13 AM) Height/Length Measured (inches) 65 inch (08/04/22 9:13 AM) BSA Measured 2.1 m2 (08/04/22 9:13 AM) Body Mass Index 35.28 kg/m2 (08/04/22 9:13 AM) Social History Social History Type Response Tobacco Never tobacco user T obacco Use:. Sex Physician Outpatient Note * Essence Liang MD: PERFORM Event Display: Office Clinic Note Physician Authored Date: [id number] BOB JOSUE :1940 Age:82 years Sex:Male Visit Date:08/04/2022 Primary Care Physician: Coral Guardado Chief Complaint 1. Prostate cancer s/p XRT 2. Intermittent painless gross hematuria History of Present Illness Mr. Josue is a pleasant 82 year-old man who presents today for follow-up of prostate cancer andintermittent gross hematuria.?? He has a history of?? [place] 3+4=7 adenocarcinoma of the prostate diagnosed??in May 2017.? He was treated with XRT (and neoadjuvant hormonal ablation therapy, which he has since completed).? In September of 2020 he underwent cystoscopy to work up gross hematuria.? The cystoscopy showed a patent TUR defect (TURP done in 2008), and no bladder lesions.?? He had a repeat hematuria work-up on 05/02/22; this showed once again only a friable prostate. ?? He denies unexpected weight loss, chronic cough, bony pain.? He has not had too much LUTS.?He has nocturia x 0.? He voids about every 2-3 h while awake.? He has a fairly good urinary stream, and does not strain to void. He takes high-dose tamsulosin and finasteride.?? His PVR today was 93 mL. ?? PSA: 07/31/22: <0.1 03/12/21: <0.1 02/22/21: <0.1?? 04/26/19: <0.008 02/20/17: 21.6 12/02/16: 22.2 10/21/14: 22.5. Physical Exam Vitals & Measurements T:??35.6?C ??(Temporal Artery)?? HR:??76??(Apical)?? RR:??12?? BP:??150/76?? SpO2:??95%?? HT:??165.10??cm?? WT:??96.16??kg?? BMI:??35.28?? BSA:??2.1?? GENERAL APPEARANCE:??alert and oriented in NAD; appropriate with good affect.??.?? NEURO:??grossly intact.?? HEENT:??NCAT; EOMI.?? NECK:??supple.?? CHEST:??symmetric excursions.?? ABDOMEN:??soft, NT, ND.?? MUSCULOSKELETAL:??good gait and station.?? EXTREMITIES:??no c/c/e??.?? BACK/SPINE:??no CVAT.?? :??deferred. Assessment/Plan 1.??Benign prostatic hyperplasia with outflow obstruction??N40.1,??Benign localized prostatic hyperplasia with lower urinary tract symptoms (LUTS)??N40.1 Ordered: Urine Dipstick Clinic POC (RE), 08/04/22 9:24:00 EDT, Benign localized prostatic hyperplasia with lower urinary tract symptoms (LUTS), 08/04/22 9:24:00 EDT ?? 2.??Malignant tumor of prostate??C61 ?? 3.??Erectile dysfunction??N52.9 ?? ASSESMENT:?? Mr. Josue is a pleasant 82 year-old man with recurrent painless gross hematuria inthe context of [place] 3+4=7 adenocarcinoma of the prostate treated with XRT in 2018. He also has BPH with incomplete bladder emptying, and is currently on dual therapy with finasteride and low-dose tamsulosin.? He has a remote history of TURP in 2008.? His cystoscopy in April 2022 showed friable prostatic regrowth in a partial TUR defect.?? He has not had any interval gross hematuria.? His PSA undetectable. ?? PLAN: 1. He will continue finasteride and tamsulosin. 3. He will follow up in 6 months with??pre-clinic PSA. Problem List/Past Medical History Ongoing Benign prostatic hyperplasia with outflow obstruction Erectile dysfunction Impacted cerumen Malignant tumor of prostate Historical No qualifying data Procedure/Surgical History ???Transurethral biopsy of prostate (12/03/2001)???Biopsy of prostate (10/26/2001)???Colonoscopy Medications chlorthalidone 25 mg oral tablet, 25 mg= 1 tab, Oral, Daily famotidine 40 mg oral tablet ferrous gluconate 324 mg (38 mg elemental iron) oral tablet finasteride 5 mg oral tablet losartan 25 mg oral tablet, 25 mg= 1 tab, Oral, Daily magnesium oxide 400 mg (241.3 mg elemental magnesium) oral tablet Rybelsus 3 mg oral tablet, 3 mg= 1 tab, Oral, Daily simvastatin 10 mg oral tablet tamsulosin 0.4 mg oral capsule, 0.8 mg= 2 cap, Oral, Daily Vitamin B12 Allergies No Known Medication Allergies Social History Electronic Cigarette/Vaping Electronic Cigarette Use: Never. Tobacco Never tobacco user Tobacco Use:. Family History Family Member(s): ?? FATHER, at age: Unknown. Cause of : train accident Family Member(s): ?? MOTHER, at age: Unknown. Cause of : train accident Electronically Signed on 08/04/22 09:38 AM Essence Liang MD Patient Care team information Care Team Personnel Name: Coral Guardado Position: No Access Member Role: Primary Care Physician Address: Address: [place] [address]- Care Team Related Persons Name: PEDRO JOSUE Address: Home Name: JOSE JOSUE Address: [facility] [address] [place] [address] Name: JOSE JOSUE Address: [place] [address] [place] [address] Name: HITESH JOSUE Address: Home Name: FADY JOSUE Address: Home [address] Name: FADY JOSUE Address: Home [address] [place] [address]
--- OUTSIDE RECORDS SUMMARY | 2022-09-22 12:44 | XMS_ITS | Continuity of Care Document ---
Author Name Unknown Organization [facility] Ambulatory Clinics Address [address] [place] [address] Care Team Providers Care Director Of Ancillary Services Name Role Phone Coral Guardado Primary Care Physician Encounter [facility] NBR [id number] Date(s): 03/18/22 - 03/18/22 [facility] Ambulatory Clinics [address] [place] [address]- Encounter Diagnosis Malignant tumor of prostate(Discharge Diagnosis) - 03/18/22 Gross hematuria(Discharge Diagnosis) - 03/18/22 Benign prostatic hyperplasia with outflow obstruction(Discharge Diagnosis) - 03/18/22 Discharge Disposition: Home or Self Care Attending Physician: Essence Liang MD Allergies, Adverse Reactions, Alerts No Known Medication Allergies Assessment and Plan Future Appointments Future Scheduled Tests Radiology* US Kidney Bladder 03/18/22 Functional Status 03/18/22 Living Environment Home Environment No qualifying data available Recent Travel History No recent travel Other exposure to Infectious Disease Non e [...] 0 Refill(s) Start Date: 03/18/22 Status: Ordered metFORMIN 500 mg oral tablet 0 Refill(s) Start Date: 03/18/22 Status: Ordered simvastatin 10 mg oral tablet 0 Refill(s) Start Date: 03/18/22 Status: Ordered tamsulosin 0.4 mg oral capsule 0.8 mg = 2 cap, Oral, Daily, cap, 0 Refill(s) Start Date: 03/18/22 Stop Date: 06/16/22 Status: Ordered Vitamin B12 0 Refill(s) Start Date: 03/18/22 Status: Ordered Problem List Condition Confirmation Course Effective Dates Status Health St atus Informant 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 Results Laboratory List Name Date .Urinalysis POCT 03/18/22 Most recent to oldest [Reference Range]: 1 Method of Collect POC Clean Catch *NA* (03/18/22 9:53 AM) Specific [place], Ur POC >=1.030 *NA* (03/18/22 9:53 AM) Specimen Color POC [Yellow] Yellow (03/18/22 9:53 AM) Glucose, Urine POC Negative mg/dL *NA* (03/18/22 9:53 AM) Bilirubin, Urine POC [Negative] Small *ABN* (03/18/22 9:53 AM) Ketones, Urine POC [Negative mg/dL] Trac e mg/dL *ABN* (03/18/22 9:53 AM) Blood, Urine POC [Negative] Negative (03/18/22 9:53 AM) pH, Urine POC 6.0 *NA* (03/18/22 9:53 AM) Protein, Urine POC [Negative mg/dL] Nega tive mg/dL (03/18/22 9:53 AM) Urobilinogen, Urine POC [0.2] 1.0 *ABN* (03/18/22 9:53 AM) Nitrite, Urine POC [Negative] Negative (03/18/22 9:53 AM) Leuk Esterase, Urine POC [Negative] Nega tive (03/18/22 9:53 AM) Clarity, Urine POC [Clear] Clear (03/18/22 9:53 AM) Vital Signs Most recent to oldest [Reference Range]: 1 Peripheral Pulse Rate [60-100 bpm] 71 bp m (03/18/22 9:39 AM) Blood Pressure [90-140/60-90 mmHg] 168/8 2mmHg *HI* (03/18/22 9:39 AM) Social History Social History Type Response Tobacco Never tobacco user T obacco Use:. Sex Physician Outpatient Note * Essence Liang MD: PERFORM Event Display: Office Clinic Note Physician Authored Date: [id number] BOB JOSUE :1940 Age:82 years Sex:Male Visit Date:03/18/2022 Primary Care Physician: Coral Guardado History of Present Illness Mr. Josue is a pleasant 82 year-old man who presents today for follow-up of prostate cancer.?? He was initially diagnosed with [place] 3+4=7 adenocarcinoma of the prostate in May 2017. He was treated with XRT (and neoadjuvant hormonal ablation therapy, which he has since completed). His last visit was??09/11/21. ? He is worried today because he has continued to have intermittent painless gross blood in the urine.?? He notes that it is more likely to happen if he is constipated andstrains to defecate.? He has had gross hematuria??off and on since February.? In September of 2020 he underwent cystoscopy to work up gross hematuria.? The cystoscopy showed a patent TUR defect (TURP done in 2008), and no bladder lesions. He has not had any interval gross hematuria.? He denies unexpected weight loss, chronic cough, bony pain.? He has not had too much LUTS.?He has nocturia x 0.? He voids about every 2-3 h while awake.? He has a fairly good urinary stream, and does not strain to void. He takes high-dose tamsulosin and finasteride. ?? PSA: 03/12/21: <0.1 02/22/21: <0.1?? 04/26/19: <0.008 02/20/17: 21.6 12/02/16: 22.2 10/21/14: 22.5. Physical Exam Vitals & Measurements HR:??71??(Peripheral)?? BP:??168/82?? SpO2:??98%?? GENERAL APPEARANCE:??alert and oriented in NAD; appropriate with good affect.??.?? NEURO:??grossly intact.?? HEENT:??NCAT; EOMI.?? NECK:??supple.?? CHEST:??symmetric excursions.?? ABDOMEN:??soft, NT, ND.?? MUSCULOSKELETAL:??good gait and station.?? EXTREMITIES:??no c/c/e??.?? BACK/SPINE:??no CVAT.?? :??deferred. Assessment/Plan 1.??Malignant tumor of prostate??C61 Ordered: Bladder Scan POC, 03/18/22 11:17:00 EST, Malignant tumor of prostate Gross hematuria Benign prostatic hyperplasia with outflow obstruction, 03/18/22 11:17:00 EST ?? 2.??Gross hematuria??R31.0 Ordered: Bladder Scan POC, 03/18/22 11:17:00 EST, Malignant tumor of prostate Gross hematuria Benign prostatic hyperplasia with outflow obstruction, 03/18/22 11:17:00 EST US Kidney Bladder, 03/18/22, Routine, Reason: gross hematuria, Transport Mode: Ambulatory, Gross hematuria ?? 3.??Benign prostatic hyperplasia with outflow obstruction??N40.1 Ordered: Bladder Scan POC, 03/18/22 11:17:00 EST, Malignant tumor of prostate Gross hematuria Benign prostatic hyperplasia with outflow obstruction, 03/18/22 11:17:00 EST Urine Dipstick Clinic POC (RE), 03/18/22 9:31:00 EST, Benign nodular prostatic hyperplasia with lower urinary tract symptoms, 03/18/22 9:31:00 EST ?? ASSESMENT:?? Mr. Josue is a pleasant 82 year-old man with recurrent painless gross hematuria inthe context of [place] 3+4=7 adenocarcinoma of the prostate treated with XRT in 2018. He also has BPH with incomplete bladder emptying, and is currently on dual therapy with finasteride and low-dose tamsulosin. He has a remote history of TURP in 2009.? Today, he??was also found to have??incomplet e bladder emptying. PLAN: 1.?? Cystoscopy and renal sonogram to work up gross hematuria. 2.?? He will continue finasteride and tamsulosin. 3.?? Repeat PVR at his next visit. ?? 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 Tobacco Never tobacco user Tobacco Use:. Family History Family Member(s): ?? FATHER, at age: Unknown. Cause of : train accident Family Member(s): ?? MOTHER, at age: Unknown. Cause of : train accident Lab Results Test Name Test Result Date/Time Method of Collect POC Clean Catch 03/18/2022 09:53 EST Specimen Color POC Yellow 03/18/2022 09:53 EST Clarity, Urine POC Clear 03/18/2022 09:53 EST Glucose, Urine POC Negative 03/18/2022 09:53 EST Bilirubin, Urine POC Small 03/18/2022 09:53 EST Ketones, Urine POC Trace 03/18/2022 09:53 EST Specific [place], Ur POC >=1.030 03/18/2022 09:53 EST pH, Urine POC 6.0 03/18/2022 09:53 EST Protein, Urine POC Negative 03/18/2022 09:53 EST Urobilinogen, Urine POC 1.0 03/18/2022 09:53 EST Nitrite, Urine POC Negative 03/18/2022 09:53 EST Blood, Urine POC Negative 03/18/2022 09:53 EST Leuk Esterase, Urine POC Negative 03/18/2022 09:53 EST Electronically Signed on 03/18/22 01:35 PM Essence Liang MD Patient Care team information Personnel Name: Coral Guardado Address: Address: [address] [facility], [place] [address]
[2022-09-23 15:34] LABS: PSA, Ultrasensitive <0.01 ng/mL (<= 7.2)
[2022-10-02 09:02] LABS: Testosterone, Total 12 ng/dL (240-950)
== END 2022-09-22 12:42 | disposition home or self-care (01) ==
LOC: LBO 12:42
PROVIDERS: PCP Family Medicine; Visit Provider Nurse Practitioner Family
DX: C61 Malignant neoplasm of prostate (principal)
CPT/HCPCS: 36415; 84153; 84403; 85025

== ENCOUNTER 2022-11-24 14:48 | Outpatient (CLI) | payer MEDICARE, SELFPAY ==
[2022-11-24 14:42] LABS: Abs Immature Grans 0.02 10^3/uL (0.0-0.06); Absolute Basophil Count 0.02 10^3/uL (0.0-0.2); Absolute Eosinophil Count 0.08 10^3/uL (0.0-0.7); Absolute Lymphocyte Count 1.15 10^3/uL (1.2-3.4); Absolute Monocyte Count 0.31 10^3/uL (0.1-0.8); Absolute Neutrophil Count 2.23 10^3/uL (1.2-6.7); Basophils % 0.5; Eosinophils % 2.1; HGB 13.3 g/dL (13.5-17.5); Immature Grans % 0.5; Lymphocytes % 30.2; MCH 26.1 pg (27.0-33.0); MCHC 33.3 % (32.0-36.0); MCV 78 fL (80-95); MPV 10.5 fL (8.0-11.0); Monocytes % 8.1; Neutrophils % 58.6; Platelet Count 228 10^3/uL (130-400); RDW 13.5 % (11.8-14.1); RDW-SD 38.5 fL; WBC 3.81 10^3/uL (4.4-10.8)
[2022-11-26 11:26] LABS: PSA, Ultrasensitive <0.01 ng/mL (<= 7.2)
[2022-11-27 10:48] LABS: Testosterone, Total 12 ng/dL (240-950)
== END 2022-11-24 14:49 | disposition home or self-care (01) ==
LOC: LBO 14:49
PROVIDERS: PCP Family Medicine; Visit Provider Nurse Practitioner Family
DX: C61 Malignant neoplasm of prostate (principal)
CPT/HCPCS: 36415; 84153; 84403; 85025

== ENCOUNTER → 2022-12-12 01:07 | Outpatient (CLI) | payer MEDICARE, SELFPAY ==
--- NOTE | 2022-12-12 | DI.US_ITS ---
Exam(s) US SCROTUM EXAM: US SCROTUM CLINICAL HISTORY: EPIDIDYMAL CYST N50.3 RECURRENT PAIN. TECHNIQUE: Scrotal ultrasound performed using grayscale, color-flow and spectral Doppler analysis. COMPARISON: US SCROTUM US from 06/23/2016 FINDINGS: Right testicle: 3.0 x 1.5 x 2.2 cm Echogenicity: Normal. Contour: Smooth. Mass: None seen. Microlithiasis: None. Hydrocele: There is a small hydrocele measuring 1.9 x 1.1 x 1.2 cm Variocele: None. Hernia: No peristalsing bowel loop identified. Epididymis: There is a 0.5 cm epididymal head cyst. Left testicle: 2.5 x 1.8 x 2.0 cm Echogenicity: Normal. Contour: Smooth. Mass: None seen. Microlithiasis: None. Hydrocele: There is a small hydrocele measuring 2.4 x 1 x 1.4 cm. Variocele: None. Hernia: No peristalsing bowel loop identified. Epididymis: There is a 0.4 cm epididymal head cyst. DOPPLER: Color: Symmetric and uniform, no hyperemia. IMPRESSION: 1. Normal appearing bilateral testicles. No evidence of an intra testicular mass. 2. Small bilateral epididymal head cysts. DATA REPOSITORY:
== END ==
PROVIDERS: PCP Family Medicine; Visit Provider Nurse Practitioner Family
DX: N50.3 Cyst of epididymis (principal)
CPT/HCPCS: 76870

== ENCOUNTER 2023-04-22 13:02 | Outpatient (REF) | payer OTHER, SELFPAY ==
[2023-04-22 15:13] LABS: HCT 41.3 % (40.0-50.0); HGB 13.4 g/dL (13.5-17.5); MCH 25.5 pg (27.0-33.0); MCHC 32.4 % (32.0-36.0); MCV 79 fL (80-95); MPV 10.8 fL (8.0-11.0); Platelet Count 258 10^3/uL (130-400); RBC 5.26 10^6/uL (4.36-5.78); RDW 13.6 % (11.8-14.1); RDW-SD 38.7 fL; WBC 4.73 10^3/uL (4.4-10.8)
[2023-04-22 15:26] LABS: Anion Gap 10.2 mmol/L (3-11); BUN 18 mg/dL (7-18); CO2 28.8 mmol/L (21.0-32.0); CREATININE 1.2 mg/dL (0.70-1.30); Calcium 10.1 mg/dL (8.5-10.1); Chloride 101 mmol/L (98-107); Estimated GFR 60.38 (mL/min/1.73m2); Glucose 127 mg/dL (74-106); Potassium 3.3 mmol/L (3.5-5.1); Sodium 140 mmol/L (136-145)
[2023-04-22 15:55] LABS: Hemoglobin A1C 7.5 % (<5.7)
--- OUTSIDE RECORDS SUMMARY | 2023-04-24 10:06 | XMS_ITS | Continuity of Care Document ---
Author Name Unknown Organization [facility] Ambulatory Clinics Address [address] [place] [address] Care Team Providers Care Machine Group Leader Name Role Phone CHAGO JENKINS APRN Primary Care Physician Encounter [facility] NBR [id number] Date(s): 01/21/23 - 01/21/23 [facility] Ambulatory Clinics [address] [place] [address]- [place] Discharge Disposition: Home Allergies, Adverse Reactions, Alerts No Known Medication Allergies Assessment and Plan Future Appointments Future Scheduled Tests Laboratory* PSA Diagnostic 08/04/22 * PSA Diagnostic 02/04/23 Radiology* US Kidney Bladder 04/16/22 Medications chlorthalidone 25 mg oral tablet 25 [...] 0.8 mg = 2 cap, Oral, Daily, # 180 cap, 3 Refill(s), Pharmacy: [id number] Start Date: 01/21/23 Stop Date: 01/16/24 Status: Ordered Vitamin B12 0 Refill(s) Start [...] 10/25/01 Comp leted Colonoscopy Completed , 04/14. Social History Social History Type Response Tobacco Never tobacco user T obacco Use:. Sex Patient Care team information Care Team Personnel Name: CHAGO JENKINS APRN Position: No Access Member Role: Primary Care Physician Address: Address: [address] Care Team Related Persons Name: PEDRO JOSUE Address: Home Name: JOSE JOSUE Address: Home [address] [place] [address] Name: JOSE JOSUE Address: Home [address] Name: HITESH JOSUE Address: Home Name: FADY JOSUE Address: Home [address] Name: FADY JOSUE Address: Home [address]
--- OUTSIDE RECORDS SUMMARY | 2023-04-24 10:06 | XMS_ITS | Continuity of Care Document ---
Author Name Unknown Organization [facility] Ambulatory [facility]ics Address [address] [place] [address] Care Team Providers Care Sign Erector Name Role Phone CHAGO JENKINS APRN Primary Care Physician Encounter [facility] NBR [id number] Date(s): 02/04/23 - 02/04/23 [facility] Amb[facility] [address] [place] [address] [place] Encounter Diagnosis Benign localized prostatic hyperplasia with lower urinary tract symptoms (LUTS) (Discharge Diagnosis) - 02/04/23 Malignant tumor of prostate(Discharge Diagnosis) - 02/04/23 Discharge Disposition: Home or Self Care Attending [...] Daily, # 180 cap, 3 Refill(s), Pharmacy: [id number] Start Date: 01/21/23 Stop Date: 01/16/24 Status: Ordered Vitamin B12 0 Refill(s) Start Date: 03/18/22 Status: Ordered Problem List Condition Confirmation Course Effective Dates Status Health St atus Informant Benign localized prostatic hyperplasia with lower urinary tract symptoms (LUTS) Confirmed Active Erectile dysfunction Confirmed Active Impacted cerumen Confirmed Active Malignant tumor of prostate Confirmed Active Procedures Procedure Date Related Diagnosis Body Site Status Transurethral biopsy of prostate 12/02/01 Completed Biopsy of prostate 1 10/25/01 Comp leted Colonoscopy Completed , 04/14. Results Laboratory List Name Date .Urinalysis POCT 02/04/23 Most recent to oldest [Reference Range]: 1 Method of Collect POC Clean Catch *NA* (02/04/23 7:55 AM) Specific [place], Ur POC 1.025 *NA* (02/04/23 7:55 AM) Specimen Color POC [Yellow] Yellow (02/04/23 7:55 AM) Glucose, Urine POC Negative mg/dL *NA* (02/04/23 7:55 AM) Bilirubin, Urine POC [Negative] Negative (02/04/23 7:55 AM) Ketones, Urine POC [Negative mg/dL] Nega tive mg/dL (02/04/23 7:55 AM) Blood, Urine POC [Negative] Trace 1 *ABN* (02/04/23 7:55 AM) pH, Urine POC 6.5 *NA* (02/04/23 7:55 AM) Protein, Urine POC [Negative mg/dL] 100 mg/dL *ABN* (02/04/23 7:55 AM) Urobilinogen, Urine POC [0.2] 0.2 (02/04/23 7:55 AM) Nitrite, Urine POC [Negative] Negative (02/04/23 7:55 AM) Leuk Esterase, Urine POC [Negative] Nega tive (02/04/23 7:55 AM) Clarity, Urine POC [Clear] Clear (02/04/23 7:55 AM) 1Result Comment: trace-lysed Vital Signs Most recent to oldest [Reference Range]: 1 Peripheral Pulse Rate [60-100 bpm] 80 bp m (02/04/23 7:44 AM) Blood Pressure [90-140/60-90 mmHg] 132/7 0mmHg (02/04/23 7:44 AM) Mean Arterial Pressure, Cuff [65-140 mmH g] 91 mmHg (02/04/23 7:44 AM) Social History Social History Type Response Tobacco Never tobacco user T obacco Use:. Sex Physician Outpatient Note * Essence Liang MD: PERFORM Event Display: Office Clinic Note Physician Authored Date: [id number] BOB ARMSTRONG :1940 Age:82 years Sex:Male Visit Date:02/04/2023 Primary Care Physician: CHAGO JENKINS APRN History of Present Illness Mr. Armstrong is a pleasant 82 year-old man who presents today for follow-up of prostate cancer andintermittent gross hematuria.?? He has a history of?? Jade 3+4=7 adenocarcinoma of the prostate diagnosed??in May 2017.? He was treated with XRT (and neoadjuvant hormonal ablation therapy, which he has since completed).? He was last seen on 08/04/22.? He has not had any interval hematuria. ?? In September of 2020 he underwent cystoscopy to work up gross hematuria.? The cystoscopy showed a patent TUR defect (TURP done in 2008), and no bladder lesions.?? He had a repeat hematuria work-up on 05/02/22; this showed once again only a friable prostate. ?? He denies unexpected weight loss, chronic cough, bony pain.? He has not had too much LUTS.?He has nocturia x 0-1.?? He voids about every 2-3 h while awake.? He??denies urinary urgency.?He has a fairly good urinary stream, and does not strain to void. He takes high-dose tamsulosin and finasteride.?? His PVR today was 16 mL. ?? PSA: 11/24/22: <0.1 07/31/22: <0.1 03/12/21: <0.1 02/22/21: <0.1?? 04/26/19: <0.008 02/20/17: 21.6 12/02/16: 22.2 10/21/14: 22.5. Physical Exam Vitals & Measurements HR:??80??(Peripheral)?? BP:??132/70?? SpO2:??97%?? GENERAL APPEARANCE:??alert and oriented in NAD; appropriate with good affect.??.?? NEURO:??grossly intact.?? HEENT:??NCAT; EOMI.?? NECK:??supple.?? CHEST:??symmetric excursions.?? ABDOMEN:??soft, NT, ND.?? MUSCULOSKELETAL:??good gait and station.?? EXTREMITIES:??no c/c/e??.?? BACK/SPINE:??no CVAT.?? :??deferred. Assessment/Plan 1.??Malignant tumor of prostate??C61 Benign localized prostatic hyperplasia with lower urinary tract symptoms (LUTS)??N40.1 ASSESMENT:?? Mr. Armstrong is a pleasant 82 year-old man with [...] 1. He will continue finasteride and tamsulosin. 2. He will follow up in??one year with??pre-clinic PSA. Problem List/Past Medical History Ongoing Benign localized prostatic hyperplasia with lower urinary tract symptoms (LUTS) Erectile dysfunction Impacted cerumen Malignant tumor of [...] oral capsule, 0.8 mg= 2 cap, Oral, Daily, 3 refills Vitamin B12 Allergies No Known Medication Allergies Social History Electronic Cigarette/Vaping Electronic Cigarette Use: Never. Tobacco Never tobacco user Tobacco Use:. Family History Family Member(s): ?? FATHER, at age: Unknown. Cause of : train accident Family Member(s): ?? MOTHER, at age: Unknown. Cause of : train accident Lab Results Test Name Test Result Date/Time Method of Collect POC Clean Catch 02/04/2023 07:55 EDT Specimen Color POC Yellow 02/04/2023 07:55 EDT Clarity, Urine POC Clear 02/04/2023 07:55 EDT Glucose, Urine POC Negative 02/04/2023 07:55 EDT Bilirubin, Urine POC Negative 02/04/2023 07:55 EDT Ketones, Urine POC Negative 02/04/2023 07:55 EDT Specific [place], Ur POC 1.025 02/04/2023 07:55 EDT pH, Urine POC 6.5 02/04/2023 07:55 EDT Protein, Urine POC 100 02/04/2023 07:55 EDT Urobilinogen, Urine POC 0.2 02/04/2023 07:55 EDT Nitrite, Urine POC Negative 02/04/2023 07:55 EDT Blood, Urine POC Trace 02/04/2023 07:55 EDT Leuk Esterase, Urine POC Negative 02/04/2023 07:55 EDT Electronically Signed on 02/04/23 08:24 AM Essence Liang MD Patient Care team information Care Team Personnel Name: CHAGO JENKINS APRN Position: No Access Member Role: Primary Care Physician Address: Address: [address], [place] [address]- Care Team Related Persons Name: PEDRO ARMSTRONG Address: Home Name: JOSE ARMSTRONG Address: Home [address] [place] [address] Name: JOSE ARMSTRONG Address: Home [address] [place] [address] Name: HITESH ARMSTRONG Address: Home Name: FADY ARMSTRONG Address: Home [address] Name: FADY ARMSTRONG Address: Home [address]
== END 2023-04-22 13:03 | disposition home or self-care (01) ==
LOC: NCHCN 13:02
PROVIDERS: PCP Family Medicine; Visit Provider Nurse Practitioner Family
DX: E11.9 Type 2 diabetes mellitus without complications (principal); D64.9 Anemia, unspecified; N18.9 Chronic kidney disease, unspecified
CPT/HCPCS: 80048; 85027; 83036

== ENCOUNTER 2023-07-06 15:11 | Outpatient (CLI) | payer OTHER, MEDICAID, SELFPAY ==
[2023-07-07 21:33] LABS: PSA, Ultrasensitive <0.01 ng/mL (<= 7.2)
[2023-07-10 14:57] LABS: Testosterone, Total 8.2 ng/dL (240-950)
== END 2023-07-06 15:12 | disposition home or self-care (01) ==
LOC: LBO 15:14
PROVIDERS: PCP Family Medicine; Visit Provider Nurse Practitioner
DX: C61 Malignant neoplasm of prostate (principal)
CPT/HCPCS: 36415; 84153; 84403

== ENCOUNTER 2023-07-22 15:54 | Outpatient (REF) | payer OTHER, SELFPAY ==
[2023-07-22 16:31] LABS: Anion Gap 9.6 mmol/L (3-11); BUN 22 mg/dL (7-18); CO2 28.4 mmol/L (21.0-32.0); Calcium 9.4 mg/dL (8.5-10.1); Chloride 101 mmol/L (98-107); Estimated GFR 75.14 (mL/min/1.73m2); Glucose 121 mg/dL (74-106); Potassium 3.7 mmol/L (3.5-5.1); Sodium 139 mmol/L (136-145)
== END 2023-07-22 15:55 | disposition home or self-care (01) ==
LOC: NCHCN 15:54
PROVIDERS: PCP Family Medicine; Visit Provider Nurse Practitioner Family
DX: I10 Essential (primary) hypertension (principal)
CPT/HCPCS: 80048

== ENCOUNTER → 2023-12-22 08:37 | Outpatient (BNVA) | payer OTHER, SELFPAY | PROVIDERS: PCP Family Medicine; Referring Provider Nurse Practitioner Family; Visit Provider Podiatrist | DX: L60.0 Ingrowing nail (principal); M79.671 Pain in right foot; D23.9 Other benign neoplasm of skin, unspecified; E11.9 Type 2 diabetes mellitus without complications | CPT/HCPCS: 11750 ==

== ENCOUNTER → 2024-01-13 09:40 | Outpatient (BNVA) | payer OTHER, MEDICAID, SELFPAY | PROVIDERS: PCP Nurse Practitioner Family; Referring Provider Nurse Practitioner Family; Visit Provider Podiatrist | DX: L60.0 Ingrowing nail (principal); M79.671 Pain in right foot; D23.9 Other benign neoplasm of skin, unspecified; E11.9 Type 2 diabetes mellitus without complications | CPT/HCPCS: 99213 ==

== ENCOUNTER 2024-01-18 08:12 | Outpatient (CLI) | payer OTHER, SELFPAY ==
--- NOTE | 2024-01-18 08:00 | RT.EKG_ITS ---
APPROVED REPORT Exam: Resting ECG Reason for Exam: pallpitations Patient Location: O HR:71 bpm ECG Measurements Heart Rate [address] 308 P -83 QRSd 90 QRS -37 QT 372 T 37 QTc 405 Conclusion Sinus rhythm Prolonged CT interval...CT >220, V-rate 50- 90 Abnormal R-wave progression, early transition...QRS area>0 in V2 Left axis Premature ventricular contraction
== END 2024-01-18 08:13 | disposition home or self-care (01) ==
LOC: DI.CARD 08:12
PROVIDERS: PCP Nurse Practitioner Family; Visit Provider Internal Medicine Cardiovascular Disease
DX: R00.2 Palpitations (principal)
CPT/HCPCS: 93010

== ENCOUNTER → 2024-01-18 13:25 | Outpatient (BNVA) | payer OTHER, MEDICAID, SELFPAY | PROVIDERS: PCP Nurse Practitioner Family; Referring Provider Family Medicine; Visit Provider Internal Medicine Cardiovascular Disease | DX: R07.89 Other chest pain (principal); I35.8 Other nonrheumatic aortic valve disorders; E11.9 Type 2 diabetes mellitus without complications; I10 Essential (primary) hypertension; Z82.49 Family history of ischemic heart disease and other diseases of the circulatory system; E78.5 Hyperlipidemia, unspecified; R00.2 Palpitations | CPT/HCPCS: 93005; 99214 ==

== ENCOUNTER 2024-01-28 01:59 | Outpatient (CLI) | payer OTHER, MEDICAID, SELFPAY ==
--- NOTE | 2024-01-28 14:00 | DI.US_ITS ---
APPROVED REPORT EXAM: Comprehensive 2D, Doppler, and color-flow Echocardiogram Patient Location: Out-Patient [facility] Assistants: Kathy Mendieta RDCS (AE) Indications: Aortic valve sclerosis Other Information Study Quality: Fair. Technically limited study due to body habitus. Conclusion Normal left ventricular wall thickness and chamber size. Ejection fraction is 55%. Wall motion is n ormal Grossly normal right ventricular size and function Both atria are normal in size Aortic valve is sclerotic and probably trileaflet. There is mild aortic regurgitation. Mean aortic valve gradient is 9.7 mmHg Ascending aorta measures 3.43 cm Wall motion Left Ventricle The left ventricle is normal size. The left ventricular systolic function is normal. The left ventric ular ejection fraction is within the normal range. There is normal left ventricular wall thickness. T here is normal LV segmental wall motion. There is no ventricular septal defect visualized. LVEF is 55 %. Right Ventricle Right ventricle is grossly normal in size. Right ventricular systolic function is grossly normal. Atria The left atrium size is normal. The right atrium size is normal. The interatrial septum is intact wit h no evidence for an atrial septal defect. Aortic Valve Aortic valve is calcified. Valve is probably trileaflet No hemodynamically significant valvular aorti c stenosis. Mild aortic regurgitation. Mitral Valve The mitral valve is normal in structure. No evidence of mitral valve stenosis. Trace mitral regurgit ation. Tricuspid Valve The tricuspid valve is normal in structure. There is no tricuspid valve stenosis. Trace tricuspid reg urgitation. Unable to assess PA pressure. Pulmonic Valve The pulmonary valve is normal in structure. There is no pulmonic valvular stenosis. There is no pulmo karen valvular regurgitation. Great Vessels Aortic root is mildly dilated. The ascending aorta is normal in size. Aortic arch is normal in calib er. IVC is normal in size and collapses >50% with inspiration. Pericardium There is no pericardial effusion. 2D Dimensions IVSD d PLAX 0.90 cm M: 0.6-1.2 Ao Root d 3.80 cm M: 3.1 - 3.7 LVPW d PLAX 0.90 cm M: 0.6 - 1.2 Ao Asc Diam d 3.43 cm M: 2.6 - 3.4 LVID d PLAX 4.40 cm M: 4.2 - 5.8 LVDs 3.20 cm M: 2.5 - 4.0 LV EF Teichholz 52.7 % FS 26.87 % LV EDV (Teich) 86.3 mL LV ESV (Teich) 40.8 mL M-Mode TAPSE 2.13 cm (M/F) >1.7 LA Volume LA Length A4C 4.4 cm LA Length A2C 5.1 cm LA Area A4C s 16.79 cm2 LA Area A2C s 21.41 cm2 LA Vol A4C A-L 54.69 mL LA Vol A2C A-L 75.57 mL LA Vol Biplane A-L 69.7 mL LA Vol/BSA A4C A-L LA Vol/BSA A2C A-L LA Vol/BSA BP A-L 34.9 mL/m2 LA Vol A4C MOD 50.1 mL LA Vol A2C MOD 69.8 mL LA Vol BP MOD 64.1 mL RA Volume RA Area A4C 11.9 cm2 RA ESV A4C (A-L) 28.6mL RA Vol/BSA A4C A-L RA Length A4C 4.2 cm RA ESV A4C (MOD) 25.8mL LV Diastology MV E' medial 0.060 (>0.07 m/s) MV E Vmax 0.49 (0.4-1.3 m/s) MV E/E' MED 8.07 (<14) MV A Vmax 0.75 (0.4-1.3 m/s) MV E' lateral 0.058 (>0.1 m/s) E/A Ratio 0.7 MV E/E' LAT 8.47 (<14) MV E' Average 0.059 m/s MV E/E'(average) 8.27 Aortic Valve AoV Vmax 2.10 m/s LVOT Vmax 0.74 m/s AoV Peak Grad 32.0 mmHg LVOT Peak Grad 2.2 mmHg AoV Area (Vmax) 1.12 cm2 LVOT VTI 0.159 m AoV VTI 0.454 m LVOT Mean Grad 1.1 mmHg AoV Mean Quinten. 1.46 m/s LVOT SV 50.68 mL AoV Mean Grad 9.7 mmHg LVOT Diam s 2.00 cm AoV Area (VTI) 1.12 cm2 AV Regurg Peak Gr. 17.68 mmHg Velocity Ratio 0.35 AR Decel [place] 0.6m/sec2 AR DT 5542 msec AR PHT 1607 msec AR Vmax 3.41 m/s Mitral Valve MV DT 213 (160-240 msec) Pulmonary Valve PV Vmax 1.05 (0.5-1.5 m/s) RVOT Vmax 0.49 m/s PV Peak Grad 4.4 mmHg RVOT Peak Gr. 0.9 mmHg PV Mean Quinten 0.65 m/s RVOT VTI 0.114 m PV Mean Grad 2.0 mmHg RVOT Mean Gr. 0.5 mmHg Tricuspid Valve TV S' 0.10 m/s
== END 2024-01-28 02:19 ==
LOC: DI 01:59
PROVIDERS: PCP Nurse Practitioner Family; Visit Provider Internal Medicine Cardiovascular Disease
DX: I35.8 Other nonrheumatic aortic valve disorders (principal)
CPT/HCPCS: 93306

== ENCOUNTER → 2024-03-10 10:07 | Outpatient (BNVA) | payer OTHER, MEDICAID, SELFPAY | PROVIDERS: PCP Nurse Practitioner Family; Referring Provider Nurse Practitioner Family; Visit Provider Internal Medicine Cardiovascular Disease | DX: I35.8 Other nonrheumatic aortic valve disorders (principal) | CPT/HCPCS: 99213 ==

== ENCOUNTER 2024-06-29 02:22 | Outpatient (CLI) | payer MEDICARE, SELFPAY ==
[2024-07-01 12:13] LABS: PSA, Ultrasensitive <0.01 ng/mL (<= 7.2)
== END 2024-06-29 02:23 | disposition home or self-care (01) ==
PROVIDERS: PCP Nurse Practitioner Family; Visit Provider Physician Assistant
DX: C61 Malignant neoplasm of prostate (principal)
CPT/HCPCS: 36415; 84153; 84403

== ENCOUNTER 2024-07-04 12:50 | Outpatient (REF) | payer MEDICARE, SELFPAY ==
[2024-07-04 21:39] LABS: Hemoglobin A1C 6.6 % (<5.7)
[2024-07-04 21:45] LABS: ALT 43 U/L (16-63); AST 24 U/L (15-37); Alkaline Phosphatase 80 U/L (46-116); Anion Gap 5.5 mmol/L (3-11); BUN 15 mg/dL (7-18); Bilirubin, Total 0.4 mg/dL (0.2-1.0); CO2 31.5 mmol/L (21.0-32.0); Calcium 9.5 mg/dL (8.5-10.1); Calculated LDL 80 mg/dL (<100); Chloride 105 mmol/L (98-107); Cholesterol 174 mg/dL (<200); Estimated GFR 74.68 (mL/min/1.73m2); Glucose 87 mg/dL (74-106); HDL Cholesterol 41 mg/dL (>or=40); Potassium 4.4 mmol/L (3.5-5.1); Sodium 142 mmol/L (136-145); Total Protein 7.3 g/dL (6.4-8.2); Triglyceride 267 mg/dL (<150)
== END 2024-07-04 12:51 | disposition home or self-care (01) ==
LOC: NCHCN 12:50
PROVIDERS: PCP Nurse Practitioner Family; Visit Provider Nurse Practitioner Family
DX: E11.9 Type 2 diabetes mellitus without complications (principal); I10 Essential (primary) hypertension; E78.5 Hyperlipidemia, unspecified
CPT/HCPCS: 80053; 80061; 83036

== ENCOUNTER 2024-09-16 15:02 | Outpatient (CLI) | payer MEDICARE, SELFPAY ==
--- NOTE | 2024-09-16 15:28 | DI.RAD_ITS ---
Exam(s) XR CHEST 2V PA LATERAL EXAM: XR CHEST 2V PA LATERAL CLINICAL HISTORY: Acute cough, R05.1. TECHNIQUE: 2D digital imaging was performed. COMPARISON: No exams were available for comparison FINDINGS: 2 views: Heart size is normal. The mediastinum is not widened. Right lung is clear but there appears to be some infiltrate in the left lower lobe retrocardiac region. No pleural effusions. IMPRESSION: Left lower lobe infiltrate. No obvious pleural effusion. DATA REPOSITORY: RADIATION DOSE DELIVERED:
== END 2024-09-16 15:22 ==
LOC: DI 15:02
PROVIDERS: PCP Nurse Practitioner Family; Visit Provider Physician Assistant Medical
DX: R05.1 Acute cough (principal); R91.8 Other nonspecific abnormal finding of lung field
CPT/HCPCS: 71046

== ENCOUNTER 2025-01-03 09:16 | Outpatient (CLI) | payer MEDICARE, SELFPAY | END 2025-01-03 09:17 | disposition home or self-care (01) | LOC: LBO 09:16 | PROVIDERS: PCP Nurse Practitioner Family; Visit Provider Nurse Practitioner Adult Health | DX: C61 Malignant neoplasm of prostate (principal) | CPT/HCPCS: 36415; 84153 ==

== ENCOUNTER 2025-02-02 09:22 | Outpatient (CLI) | payer MEDICARE, SELFPAY ==
[2025-02-03 09:38] LABS: PSA, Diagnostic <0.1 ng/mL (<=6.5)
== END 2025-02-02 09:23 | disposition home or self-care (01) ==
LOC: LBO 09:23
PROVIDERS: PCP Nurse Practitioner Family; Visit Provider Urology
DX: N40.1 Benign prostatic hyperplasia with lower urinary tract symptoms (principal)
CPT/HCPCS: 36415; 84153

== ENCOUNTER → 2025-03-09 09:45 | Outpatient (BNVA) | payer MEDICARE, SELFPAY | PROVIDERS: PCP Nurse Practitioner Family; Visit Provider Internal Medicine Cardiovascular Disease | DX: I35.8 Other nonrheumatic aortic valve disorders (principal) | CPT/HCPCS: 99213 ==